=== PATIENT | female | born 1955 | race Caucasian/White ===

== ENCOUNTER 2016-06-15 08:41 | Outpatient (CLI) | payer BC | END 2016-06-15 08:42 | disposition home or self-care (01) | DX: I10 Essential (primary) hypertension (principal); E05.90 Thyrotoxicosis, unspecified without thyrotoxic crisis or storm ==

== ENCOUNTER 2016-07-02 21:01 | Emergency (ER) | payer BC ==
[2016-07-02 21:09] VITALS: BP 149/92
--- NOTE | 2016-07-02 21:42 | ED Physician Documentation ---
PD HPI ABD PAIN - Stated complaint Stated Complaint: LOW ABD PAIN - Chief complaint Chief Complaint: Abd Pain - History obtained from History obtained from: Patient - History of Present Illness Timing - onset: How many hours ago (1) Timing - duration: Hours (1) Timing - details: Abrupt onset, Waxing and waning Pain level now: 6 Quality: Other (burning) Location: Suprapubic Radiation: Other (no radiation) Worsened by: Other (no exacerbating factors (does not seem to be worse with urination)) Similar symptoms before: Diagnosis (similar to previous UTI) Review of Systems Constitutional: denies: Fever, Chills, Sweats GI: reports: Abdominal Pain (suprapubic). 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 : None HEENT: None Psych: Anxiety Musculoskeletal: Other Derm: None - Past Surgical History Past Surgical History: Yes General: Cholecystectomy Ortho: Other /SUPERVISOR ORCHARD: section, Hysterectomy HEENT: Tonsil/Adenoidectomy Derm: Other - Present Medications Home Medications: Ambulatory Orders Medication Instructions Recorded Confirmed Estradiol 0.25 mg PO DAILY 09/16/13 07/02/16 Omeprazole [PriLOSEC] 40 mg PO BID 09/16/13 07/02/16 Venlafaxine ER [Effexor ER] 75 mg PO DAILY 12/21/13 07/02/16 Epinephrine [Epipen 2-Trevor] 0.3 mg IJ ONCE PRN #1 unit 07/31/15 07/02/16 Zolpidem [Ambien] 10 mg PO HS 07/31/15 07/02/16 LORazepam [Ativan] 0.5 mg PO Q6H PRN 07/02/16 07/02/16 Nitrofurantoin [Macrobid] 100 mg PO BID #9 capsule 07/02/16 Phenazopyridine HCl [Pyridium] 200 mg PO TID 3 Days 07/02/16 - Allergies Allergies/Adverse Reactions: Allergies Allergy/AdvReac Type Severity Reaction Status Date / Time codeine Allergy Hives Verified 07/31/15 19:54 Sulfa (Sulfonamide Allergy Hives Verified 07/31/15 19:54 Antibiotics) venom-honey bee Allergy Hives Verified 07/31/15 19:54 [bee venom (honey bee)] - Social History Does the pt smoke?: No Smoking Status: Never smoker Does the pt drink ETOH?: No Does the pt have substance abuse?: No - Immunizations Immunizations are current?: Yes - POLST Patient has POLST: No PD ED PE NORMAL - Vitals Vital signs reviewed: Yes - General General: Alert and oriented X 3, No acute distress, Well developed/nourished - Abdomen Abdomen: Soft, Non tender, Non distended - Derm Derm: Normal color, Warm and dry Results - Vitals Vitals: Vital Signs - 24 hr 07/02/16 07/02/16 21:07 22:32 Temperature 36.8 C Heart Rate 70 68 Respiratory 18 18 Rate Blood Pressure 149/92 H O2 Saturation 98 98 Oxygen O2 Source Room air - Labs Labs: Laboratory Tests 07/02/16 21:25 Urine Color YELLOW Urine Clarity CLEAR Urine pH 8.0 H Ur Specific [place] 1.010 Urine Protein NEGATIVE Urine Glucose (UA) NEGATIVE Urine Ketones NEGATIVE Urine Occult Blood LARGE H Urine Nitrite NEGATIVE Urine Bilirubin NEGATIVE Urine Urobilinogen 0.2 (NORMAL) Ur Leukocyte Esterase LARGE H Urine RBC 6-10 H Urine WBC 6-10 H Ur Squamous Epith Cells FEW Squamous Urine Bacteria Rare Ur Microscopic Review INDICATED Urine Culture Comments INDICATED PD MEDICAL DECISION MAKING - ED course Complexity details: reviewed results, considered differential, d/w patient Departure - Departure Disposition: 01 Home, Self Care Clinical Impression: Urinary tract infectious disease Condition: Good Instructions: ED UTI Cystitis Female Follow-Up: Brett Gaston DO [Primary Care Provider] - (3-5 days if symptoms do not resolve) Prescriptions: Nitrofurantoin [Macrobid] 100 mg PO BID #9 capsule Phenazopyridine HCl [Pyridium] 200 mg PO TID 3 Days Discharge Date/Time: 07/02/16 22:34
[2016-07-02 21:54] LABS: BILIRUBIN,URINE NEGATIVE (NEGATIVE)
[2016-07-02 21:55] LABS: UA w/ MICROSCOPIC CHARGE YES
[2016-07-02 22:03] LABS: UR CULTURE IF IND INDICATED
[2016-07-02] MEDS ORDERED: NITROFURANTOIN MACRO 100 MG CAPSULE PO STA (22:25)
[2016-07-02] MEDS ORDERED: PHENAZOPYRIDINE 100 MG TABLET PO STA (22:25)
[2016-07-02] MEDS ORDERED: PHENAZOPYRIDINE 100 MG TABLET PO ONE (22:28)
[2016-07-02] MEDS ORDERED: NITROFURANTOIN MACRO 100 MG CAPSULE PO ONE (22:28)
== END 2016-07-02 22:34 | disposition home or self-care (01) ==
LOC: ED 21:01
DX: N39.0 Urinary tract infection, site not specified (principal); I10 Essential (primary) hypertension; K21.9 Gastro-esophageal reflux disease without esophagitis
CPT/HCPCS: 81001; 87077; 87086; 87181; 99283; A9270; 81003

== ENCOUNTER 2016-07-24 08:19 | Outpatient (CLI) | payer BC ==
--- NOTE | 2016-07-24 14:19 | DEXA Report ---
DEXA SCAN: 07/24/2016 CLINICAL INDICATION: Postmenopausal. TECHNIQUE: Dual energy x-ray absorptiometry (DXA) was performed on a [employer] system. Regions measured are the AP spine, femoral neck, and, if needed, forearm. COMPARISON: None. In accordance with the International Society for Clinical Densitometry (ISCD) guidelines, data from previous exams may be reanalyzed using current recommendations and techniques. This is done to allow a more accurate basis for comparison with the current study. FINDINGS: The data for the lumbar spine is as follows: REGION BMD (g/cm/cm) T-SCORE Z-SCORE L1 0.910 -1.8 -0.4 L2 0.980 -1.8 -0.4 L3 0.970 -1.9 -0.5 L4 0.859 -2.8 -1.4 TOTAL 0.926 -2.1 -0.7 NOTE: All evaluable vertebrae are used for classification. The data for the hip is as follows: REGION BMD (g/cm/cm) T-SCORE Z-SCORE Neck 0.846 -1.4 0.0 TOTAL 0.906 -0.8 0.3 NOTE: The femoral neck or total proximal femur, whichever is lowest, is used for classification. IMPRESSION: THE WHO CLASSIFICATION BASED ON THE INTERNATIONAL REFERENCE STANDARD IS OSTEOPENIA. THE FRACTURE RISK IS INCREASED. RECOMMENDATION: Patients with diagnosis of osteoporosis or osteopenia should have regular bone mineral density assessment. For those eligible for Medicare, routine testing is allowed once every 2 years. Testing frequency can be increased for patients who have rapidly progressing disease or for those who are receiving medical therapy to restore bone mass. COMMENT: World Health Organization (WHO) definitions for osteoporosis and osteopenia: NORMAL BMD: T-score at -1.0 or higher, fracture risk is low. OSTEOPENIA BMD: T-score between -1.0 and -2.5, fracture risk is increased. OSTEOPOROSIS BMD: T-score at -2.5 or lower, fracture risk high. National Osteoporosis Foundation recommends: 1. Obtain adequate dietary calcium (at least 1200 mg per day) and vitamin D (400 -800 international units per day). 2. Participate, as appropriate, in regular weightbearing and muscle- strengthening exercise. 3. Avoid tobacco use and reduce alcohol and caffeine intake. 4. For more detailed information see the website at www.NOF.org. MTDD
== END 2016-07-24 08:20 | disposition home or self-care (01) ==
LOC: DI 08:19
PROVIDERS: ATTEND Family Medicine
DX: M85.89 Other specified disorders of bone density and structure, multiple sites (principal)
CPT/HCPCS: 77080

== ENCOUNTER 2016-09-21 16:45 | Outpatient (CLI) | payer BC ==
--- NOTE | 2016-09-22 12:30 | XRAY Report ---
THREE-VIEW LEFT FOOT: 09/21/2016 CLINICAL HISTORY: Increasing pain. FINDINGS: There is joint space narrowing, metatarsus adductus and hallux valgus deformity in the set ting of bunion formation. The osseous structures are otherwise unremarkable. There is no acute fracture, focus of destruction, or malalignment. Bony mineralization is grossly unremarkable. IMPRESSION: 1. MODERATE BUNION FORMATION/DEGENERATIVE CHANGES. 2. NO ACUTE PROCESS. JOB #: [id number] EXT JOB #:[id number]
== END 2016-09-21 16:46 | disposition home or self-care (01) ==
LOC: DI 16:45
PROVIDERS: ATTEND Podiatrist
DX: M19.072 Primary osteoarthritis, left ankle and foot (principal); M21.612 Bunion of left foot

== ENCOUNTER 2016-10-01 17:00 | Outpatient (CLI) | payer BC | END 2016-10-01 17:01 | disposition home or self-care (01) | LOC: LAB.R 17:00 | PROVIDERS: ATTEND Physician Assistant Medical | DX: R30.0 Dysuria (principal) | CPT/HCPCS: 87086 ==

== ENCOUNTER 2016-10-20 10:57 | Outpatient (CLI) | payer BC ==
[2016-10-20 11:34] LABS: BILIRUBIN,URINE NEGATIVE (NEGATIVE); PH,URINE 6.5 PH (5.0-7.5)
[2016-10-20 12:03] LABS: WBC,URINE 0-3 /HPF (0-5)
== END 2016-10-20 10:58 | disposition home or self-care (01) ==
LOC: LAB 10:57
PROVIDERS: ATTEND Family Medicine
DX: R31.9 Hematuria, unspecified (principal)
CPT/HCPCS: 81001

== ENCOUNTER 2016-10-22 09:46 | Outpatient (CLI) | payer BC ==
--- NOTE | 2016-10-23 13:55 | Mammography Report ---
DIGITAL SCREENING MAMMOGRAM: 10/22/2016 CLINICAL INDICATION: A 61-year-old for screening. COMPARISON: 08/2015, 07/2014, 01/2010, 11/2008 TECHNIQUE: Routine CC and MLO projections were obtained of the breasts. FINDINGS: The breasts demonstrate heterogeneously dense fibroglandular parenchyma bilaterally. Coar se and punctate, typically benign calcifications are present. No suspicious masses, clustered microc alcifications, or regions of architectural distortion are identified. IMPRESSION: BENIGN FINDINGS. RECOMMENDATION: Routine annual screening unless otherwise clinically indicated. BIRADS CATEGORY 2 - BENIGN FINDINGS. STANDARD QUALIFYING STATEMENTS 1. This examination was reviewed with the aid of Computer-Aided Detection (CAD). 2. A negative or benign imaging report should not delay biopsy if clinically suspicious findings are present. Consider surgical consultation if warranted. More than 5% of cancers are not identified by i maging. 3. Dense breasts may obscure an underlying neoplasm. JOB #: [id number] EXT JOB #:[id number]
== END 2016-10-22 09:47 | disposition home or self-care (01) ==
LOC: DI.N 09:46
PROVIDERS: ATTEND Family Medicine
DX: Z12.31 Encounter for screening mammogram for malignant neoplasm of breast (principal)
CPT/HCPCS: 77067

== ENCOUNTER 2016-10-26 15:17 | Outpatient (CLI) | payer BC ==
[2016-10-26 19:32] LABS: BASOPHILS % (AUTO) 0.4 %; EOSINOPHILS % (AUTO) 0.3 %; HCT - HEMATOCRIT 39.1 % (37.0-47.0); HGB - HEMOGLOBIN 13.3 g/dL (12.0-16.0); LYMPHOCYTES # (AUTO) 1.6 10^3/uL (1.5-3.5); LYMPHOCYTES % (AUTO) 18.6 %; MEAN CORPUSCULAR HEMOGLOBIN 32.2 pg (27.0-31.0); MEAN CORPUSCULAR HGB CONC 33.9 g/dL (32.0-36.0); MEAN CORPUSCULAR VOLUME 95.1 fL (81.0-99.0); MEAN PLATELET VOLUME 8.8 fL (7.9-10.8); MONOCYTES # (AUTO) 0.5 10^3/uL (0.0-1.0); MONOCYTES % (AUTO) 5.8 %; NEUTROPHILS # (AUTO) 6.4 10^3/uL (1.5-6.6); NEUTROPHILS % (AUTO) 74.9 %; NUCLEATED RED BLOOD CELLS AUTO 0.1 /100WBC; RED BLOOD COUNT 4.11 10^6/uL (4.20-5.40); UNCORRECTED WHITE BLOOD COUNT 8.5 x10^3/uL; WHITE BLOOD COUNT 8.5 x10^3/uL (4.8-10.8)
[2016-10-26 20:01] LABS: ALBUMIN/GLOBULIN RATIO 1.8 (1.0-2.2); AMYLASE 41 U/L (28-100); BUN - BLOOD UREA NITROGEN 12 mg/dL (6-20); CALCIUM 9.7 mg/dL (8.5-10.3); CARBON DIOXIDE - CO2 28 mmol/L (21-32); CHLORIDE 99 mmol/L (101-111); CREATININE 0.6 mg/dL (0.4-1.0); GFR - MDRD 101 (>89); GLUCOSE 82 mg/dL (70-100); LIPASE 15 U/L (22-51); SODIUM 135 mmol/L (135-145); TOTAL PROTEIN 7.2 g/dL (6.7-8.2)
== END 2016-10-26 15:18 | disposition home or self-care (01) ==
LOC: LAB.WCP 15:17
PROVIDERS: ATTEND Family Medicine
DX: K86.1 Other chronic pancreatitis (principal)
CPT/HCPCS: 36415; 80053; 82150; 83690; 85025; 86140

== ENCOUNTER 2016-11-03 08:52 | Outpatient (CLI) | payer BC ==
[2016-11-03] MEDS ORDERED: IOPAMIDOL-300 100 ML VIAL ONE (09:07)
[2016-11-03] MEDS ORDERED: IOPAMIDOL-300 100 ML VIAL IVP ONE (09:48)
--- NOTE | 2016-11-03 12:07 | CT Report ---
CT IVP: 11/03/2016 CLINICAL INDICATION: Hematuria. TECHNIQUE: Axial CT images of the abdomen and pelvis were obtained prior to and following 100 mL of Isovue-300 intravenously, using split-bolus technique. No previous CT is available for comparison. FINDINGS: Limited evaluation of the lung bases demonstrates atelectasis. ABDOMEN: On the unenhanced images, there is no evidence of nephrolithiasis or hydronephrosis. The k idneys demonstrate symmetric uptake and excretion of contrast. A cortical cyst is seen arising from the lower pole of the left kidney. The right kidney is unremarkable. No solid renal lesion or colle cting system lesion is identified. The patient is status post cholecystectomy. The liver, spleen, p ancreas, and adrenal glands appear unremarkable. No bowel dilatation, free gas, or free fluid is pre sent. No abdominal adenopathy is seen. PELVIS: The distal ureters and urinary bladder appear unremarkable. No pelvic adenopathy or free fl uid is present. Osseous structures demonstrate degenerative changes. IMPRESSION: NO EVIDENT ETIOLOGY FOR PATIENT'S HEMATURIA. In accordance with CT protocol optimization, one or more of the following dose reduction techniques w ere utilized for this exam: automated exposure control, adjustment of mA and/or KV based on patient size, or use of iterative reconstructive technique. JOB #: [id number] EXT JOB #:[id number]
== END 2016-11-03 08:53 | disposition home or self-care (01) ==
LOC: DI 08:52
PROVIDERS: ATTEND Family Medicine
DX: R31.9 Hematuria, unspecified (principal)
CPT/HCPCS: 74178; Q9967

== ENCOUNTER 2016-12-17 09:10 | Emergency (ER) | payer BC ==
[2016-12-17 09:46] LABS: BASOPHILS % (AUTO) 0.8 %; EOSINOPHILS # (AUTO) 0.2 10^3/uL (0.0-0.7); HCT - HEMATOCRIT 37.9 % (37.0-47.0); HGB - HEMOGLOBIN 12.9 g/dL (12.0-16.0); LYMPHOCYTES % (AUTO) 35.7 %; MEAN CORPUSCULAR HEMOGLOBIN 31.6 pg (27.0-31.0); MEAN CORPUSCULAR VOLUME 92.9 fL (81.0-99.0); MEAN PLATELET VOLUME 7.8 fL (7.9-10.8); MONOCYTES # (AUTO) 0.5 10^3/uL (0.0-1.0); MONOCYTES % (AUTO) 9.3 %; NEUTROPHILS # (AUTO) 2.8 10^3/uL (1.5-6.6); NEUTROPHILS % (AUTO) 50.2 %; RED BLOOD COUNT 4.08 10^6/uL (4.20-5.40); RED CELL DISTRIBUTION WIDTH 12.5 % (12.0-15.0); UNCORRECTED WHITE BLOOD COUNT 5.5 x10^3/uL; WHITE BLOOD COUNT 5.5 x10^3/uL (4.8-10.8)
[2016-12-17 09:57] LABS: ALBUMIN/GLOBULIN RATIO 1.7 (1.0-2.2); BILIRUBIN,TOTAL 0.6 mg/dL (0.2-1.0); CALCIUM 9.3 mg/dL (8.5-10.3); CREATININE 0.7 mg/dL (0.4-1.0); POTASSIUM 3.5 mmol/L (3.5-5.0)
[2016-12-17 10:01] LABS: BILIRUBIN,URINE NEGATIVE (NEGATIVE); PH,URINE 6.5 PH (5.0-7.5)
[2016-12-17 10:06] LABS: UA CHARGE (STRIP ONLY) YES; UR CULTURE IF IND NOT INDICATED
[2016-12-17] MEDS ORDERED: HYDROmorphone 0.5 MG/0.5 ML SYRINGE IVP STA ×2 (10:28→11:26)
[2016-12-17] MEDS ORDERED: SODIUM CHLORIDE 0.9% 1,000 ML IV ONE (10:28)
[2016-12-17] MEDS ORDERED: ONDANSETRON 4 MG/2 ML VIAL IVP STA (10:28)
[2016-12-17] MEDS ORDERED: HYDROmorphone 1 MG/ML SYRINGE ONE ×2 (10:37→11:41)
[2016-12-17] MEDS ORDERED: ONDANSETRON 4 MG/2 ML VIAL ONE (10:37)
[2016-12-17] MEDS ORDERED: HYDROmorphone 1 MG/ML SYRINGE IVP STA (11:39)
--- NOTE | 2016-12-17 13:14 | ED Physician Documentation ---
PD HPI ABD PAIN - Stated complaint Stated Complaint: NAUSEA/SHAKY/WEAK - Chief complaint Chief Complaint: Abd Pain - History obtained from History obtained from: Patient - History of Present Illness Timing - duration: Days (4) Timing - details: Still present Quality: Pain Location: Other (upper abdomen.) Radiation: Upper back Worsened by: Eating Associated symptoms: Nausea. No: Fever, Vomiting, Chest pain Similar symptoms before: Diagnosis (history of chronic pancreatitis.) - Treatment prior to arrival Treatment prior to arrival: Last took an oxycodone tablet at 3:30 AM, 7 hours prior to arrival. - Additional information Additional information: The patient is a 61-year-old female who presents with epigastric abdominal pain , radiating to her back. It first started 4 days ago, and has been worse over the past 2 days, after eating cornbread with butter. She reports associated nausea, but denies vomiting. She denies fever, cough, chest pain, shortness of breath, or dysuria. She reports a history of similar symptoms in the past due to chronic pancreatitis. She is status post pancreatic stent placement in November, one month ago. This is her third flareup of similar pain since placement of the stent. Further surgical history is significant for cholecystectomy and hysterectomy. Review of Systems Constitutional: denies: Fever Ears: denies: Tinnitus/ringing Nose: denies: Congestion Throat: denies: Sore throat Cardiac: denies: Chest pain / pressure Respiratory: denies: Dyspnea, Cough GI: reports: Abdominal Pain, Nausea. denies: Vomiting, Diarrhea : denies: Dysuria Skin: denies: Rash Musculoskeletal: reports: Back pain. 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 - Present Medications Home Medications: Ambulatory Orders Medication Instructions Recorded Confirmed Estradiol 0.25 mg PO DAILY 09/16/13 12/17/16 Omeprazole [PriLOSEC] 40 mg PO BID 09/16/13 12/17/16 Venlafaxine ER [Effexor ER] 75 mg PO DAILY 12/21/13 12/17/16 Epinephrine [Epipen 2-Trevor] 0.3 mg IJ ONCE PRN #1 unit 07/31/15 12/17/16 Zolpidem [Ambien] 10 mg PO HS 07/31/15 12/17/16 LORazepam [Ativan] 0.5 mg PO Q6H PRN 07/02/16 12/17/16 Progesterone,Micronized 100 mg PO DAILY 12/17/16 12/17/16 [Progesterone] oxyCODONE/ACET 5/325 [Percocet 5 1 - 2 tab PO Q4-6H PRN #20 tablet 12/17/16 mg/325 mg] oxyCODONE/ACET 5/325 [Percocet 5 1 tab PO PRN 12/17/16 mg/325 mg] - Allergies Allergies/Adverse Reactions: Allergies Allergy/AdvReac Type Severity Reaction Status Date / Time codeine Allergy Hives Verified 07/31/15 19:54 Sulfa (Sulfonamide Allergy Hives Verified 07/31/15 19:54 Antibiotics) venom-honey bee Allergy Hives Verified 07/31/15 19:54 [bee venom (honey bee)] - Social History Does the pt smoke?: No Smoking Status: Never smoker Does the pt drink ETOH?: No Does the pt have substance abuse?: No - Immunizations Immunizations are current?: Yes - POLST Patient has POLST: No PD ED PE NORMAL - Vitals Vital signs reviewed: Yes (hypertensive) - General General: Alert and oriented X 3, Well developed/nourished - HEENT HEENT: Atraumatic, EOMI, Moist mucous membranes - Neck Neck: No adenopathy, No JVD - Cardiac Cardiac: RRR, No murmur - Respiratory Respiratory: No respiratory distress, Clear bilaterally - Abdomen Abdomen: Normal bowel sounds, Soft, No organomegaly, Other (Tenderness to palpation across the upper abdomen, without rebound or guarding.) - Back Back: No CVA TTP - Derm Derm: No rash - Extremities Extremities: No edema, No calf tenderness / cord - Neuro Neuro: Alert and oriented X 3, No motor deficit, Normal speech Results - Vitals Vitals: Oxygen O2 Source Room air - EKG (time done) 10:25 [place]: LAD - Labs Labs: Laboratory Tests 12/17/16 12/17/16 12/17/16 09:40 09:40 09:45 WBC 5.5 RBC 4.08 L Hgb 12.9 Hct 37.9 MCV 92.9 MCH 31.6 H MCHC 34.0 RDW 12.5 Plt Count 205 MPV 7.8 L Neut # 2.8 Lymph # 2.0 [place] # 0.5 Eos # 0.2 Baso # 0.0 Absolute Nucleated RBC 0.00 Nucleated RBC % 0.0 Sodium 137 Potassium 3.5 Chloride 100 L Carbon Dioxide 28 Anion Gap 9.0 BUN 7 Creatinine 0.7 Estimated GFR (MDRD) 85 L Glucose 95 Calcium 9.3 Total Bilirubin 0.6 AST 18 ALT 16 Alkaline Phosphatase 78 Total Protein 7.0 Albumin 4.4 Globulin 2.6 Albumin/Globulin Ratio 1.7 Lipase 22 Urine Color YELLOW Urine Clarity CLEAR Urine pH 6.5 Ur Specific [place] <=1.005 Urine Protein NEGATIVE Urine Glucose (UA) NEGATIVE Urine Ketones NEGATIVE Urine Occult Blood NEGATIVE Urine Nitrite NEGATIVE Urine Bilirubin NEGATIVE Urine Urobilinogen 0.2 (NORMAL) Ur Leukocyte Esterase NEGATIVE Ur Microscopic Review NOT INDICATED Urine Culture Comments NOT INDICATED PD MEDICAL DECISION MAKING - ED course Complexity details: reviewed old records, reviewed results, re-evaluated patient , considered differential, d/w patient, d/w family ED course: The patient's presentation is most consistent with acute exacerbation of pancreatitis. Her clinical presentation does not suggest cholangitis, bowel obstruction, or pyelonephritis. CBC, chemistry panel, and urinalysis are all normal, including normal lipase of 22. Treatment in the emergency department included administration of normal saline 1 L IV, ondansetron 4 mg IV, and hydromorphone 1 mg IV 2. The patient's symptoms markedly improved with the above treatment, and she subsequently demonstrated ability to drink fluids without recurrent nausea. She is being discharged with prescription for Percocet, 20 tablets. I discussed with her and her the results of her workup, symptomatic treatment and outpatient follow-up, as well as potentially worrisome signs or symptoms that should prompt reevaluation in the emergency department. Departure - Departure Disposition: 01 Home, Self Care Clinical Impression: Abdominal pain Qualifiers: Abdominal location: upper abdomen, unspecified Qualified Code(s): R10.10 - Upper abdominal pain, unspecified Chronic pancreatitis Qualifiers: Pancreatitis type: unspecified pancreatitis type Qualified Code(s): K86.1 - Other chronic pancreatitis High blood pressure Qualifiers: Hypertension type: unspecified Qualified Code(s): I10 - Essential (primary) hypertension Condition: Stable Instructions: Pancreatitis Chronic Dc Follow-Up: Brett Gaston DO [Primary Care Provider] - Prescriptions: oxyCODONE/ACET 5/325 [Percocet 5 mg/325 mg] 1 - 2 tab PO Q4-6H PRN #20 tablet PRN Reason: Pain Comments: Drink plenty of fluids. You can use Percocet as prescribed if needed for pain. He can use previously prescribed ondansetron if needed for nausea. Follow up with your primary physician or with Dr. Joy within 1 week. Call to schedule appointment. Return to the emergency department if you develop increasing abdominal pain, fever, persistent vomiting, or otherwise worsening symptoms. Discharge Date/Time: 12/17/16 13:48
[2016-12-17 13:37] VITALS: BP 169/77
== END 2016-12-17 13:48 | disposition home or self-care (01) ==
LOC: ED 09:10
DX: R10.13 Epigastric pain (principal); K86.1 Other chronic pancreatitis; I10 Essential (primary) hypertension; Z96.89 Presence of other specified functional implants
CPT/HCPCS: 36415; 80053; 81003; 83690; 85025; 96361; 96374; 96375; 96376; 99283; 99284; J1170; 81001; 87086

== ENCOUNTER 2017-03-08 08:57 | Outpatient (CLI) | payer OTHER ==
--- NOTE | 2017-03-08 10:02 | XRAY Report ---
DATE OF SERVICE: 03/08/2017 SUPINE ABDOMEN: 03/08/2017 CLINICAL INDICATION: Pancreatitis. FINDINGS: Supine views of the abdomen demonstrate a normal bowel gas pattern. No small bowel dilatation is present. Surgical clips from previous cholecystectomy are noted in the right upper quadrant. IMPRESSION: NO EVIDENCE OF BOWEL OBSTRUCTION. POSTOPERATIVE CHANGES OF CHOLECYSTECTOMY. TD: 03/08/2017 11:02
== END 2017-03-08 08:58 | disposition home or self-care (01) ==
LOC: DI 08:57
PROVIDERS: ATTEND Internal Medicine Gastroenterology
DX: K85.90 Acute pancreatitis without necrosis or infection, unspecified (principal); Z90.49 Acquired absence of other specified parts of digestive tract
CPT/HCPCS: 74018

== ENCOUNTER 2017-09-02 08:00 | Outpatient (CLI) | payer OTHER | END 2017-09-02 08:01 | disposition home or self-care (01) | LOC: LAB.R 08:00 | PROVIDERS: ATTEND Family Medicine | DX: N39.0 Urinary tract infection, site not specified (principal); Q45.3 Other congenital malformations of pancreas and pancreatic duct | CPT/HCPCS: 87086; 87181 ==

== ENCOUNTER 2017-09-22 08:56 | Outpatient (CLI) | payer OTHER ==
[2017-09-22 12:08] LABS: BASOPHILS % (AUTO) 0.8 %; EOSINOPHILS # (AUTO) 0.1 10^3/uL (0.0-0.7); EOSINOPHILS % (AUTO) 1.5 %; HGB - HEMOGLOBIN 12.2 g/dL (12.0-16.0); LYMPHOCYTES # (AUTO) 1.9 10^3/uL (1.5-3.5); LYMPHOCYTES % (AUTO) 34.7 %; MEAN CORPUSCULAR HEMOGLOBIN 32.4 pg (27.0-31.0); MEAN CORPUSCULAR HGB CONC 34.2 g/dL (32.0-36.0); MEAN CORPUSCULAR VOLUME 94.8 fL (81.0-99.0); MEAN PLATELET VOLUME 9.1 fL (7.9-10.8); MONOCYTES # (AUTO) 0.5 10^3/uL (0.0-1.0); MONOCYTES % (AUTO) 9.9 %; NEUTROPHILS # (AUTO) 2.9 10^3/uL (1.5-6.6); NEUTROPHILS % (AUTO) 53.1 %; PLT - PLATELET COUNT 217 10^3/uL (130-450); RED BLOOD COUNT 3.76 10^6/uL (4.20-5.40); RED CELL DISTRIBUTION WIDTH 13.2 % (12.0-15.0); WHITE BLOOD COUNT 5.5 x10^3/uL (4.8-10.8)
[2017-09-22 12:54] LABS: ALBUMIN 4.3 g/dL (3.2-5.5); ALBUMIN/GLOBULIN RATIO 1.6 (1.0-2.2); ALKALINE PHOSPHATASE 64 IU/L (42-121); ALT ALANINE AMINOTRANSFERASE 19 IU/L (10-60); AST ASPARTATE AMINOTRANSFERASE 18 IU/L (10-42); BILIRUBIN,TOTAL 0.5 mg/dL (0.2-1.0); BUN - BLOOD UREA NITROGEN 16 mg/dL (6-20); CALCIUM 9.1 mg/dL (8.5-10.3); CARBON DIOXIDE - CO2 30 mmol/L (21-32); CHLORIDE 101 mmol/L (101-111); CHOL/HDL RATIO 3.7 (<4.4); CHOLESTEROL 209 mg/dL; CREATININE 0.7 mg/dL (0.4-1.0); GFR - MDRD 85 (>89); GLUCOSE 77 mg/dL (70-100); HDL CHOLESTEROL 56 mg/dL; LDL CHOLESTEROL,CALCULATED 138 mg/dL; LDL/HDL RATIO 2.5 (<4.4); SODIUM 136 mmol/L (135-145); VLDL CHOLESTEROL 15 mg/dL
== END 2017-09-22 08:57 | disposition home or self-care (01) ==
LOC: LAB.WCP 08:56
PROVIDERS: ATTEND Family Medicine
DX: Z00.00 Encounter for general adult medical examination without abnormal findings (principal); E05.90 Thyrotoxicosis, unspecified without thyrotoxic crisis or storm
CPT/HCPCS: 36415; 80053; 80061; 83721; 84443; 85025

== ENCOUNTER 2017-10-08 20:48 | Emergency (ER) | payer OTHER ==
[2017-10-08] MEDS ORDERED: EPINEPHrine 1 MG/ML AMP ONE (21:02)
[2017-10-08] MEDS ORDERED: EPINEPHrine 0.3 MG/0.3 ML SYRINGE IM ONE (21:05)
--- NOTE | 2017-10-08 21:10 | ED Physician Documentation ---
History of Present Illness - Stated complaint Stated Complaint: STUNG BY BEE/POSS ALLERGIC REACTION - Chief complaint Chief Complaint: Resp - History obtained from History obtained from: Patient - History of Present Illness Timing: How many hours ago (1) Pain level now: 2 (chest heaviness) Improved by: nothing Worsened by: inciting event was bee sting, but no exacerbating factors - Additonal information Additional information: arrives via private vehicle, driven to ED by , was stung by a bee approximately 1 hour ago, developed lightheadedness, diaphoresis, dyspnea, chest heaviness, generalized weakness. she was stung anterior neck immediately cranial to the sternal notch. she used an epi-pen and took 40mg prednisone shortly after the sting. she has h/o allergic reaction to bee stings. she was stung approximately 1 week ago on her hand, had localized reaction and was seen in outpatient setting, rx prednisone. those symptoms (hand swelling, erythema) have resolved. 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 : None HEENT: None Psych: Anxiety Musculoskeletal: Other Derm: None - Past Surgical History Past Surgical History: Yes General: Cholecystectomy Ortho: Other /SET UP TECHNICIAN: section, Hysterectomy HEENT: Tonsil/Adenoidectomy Derm: Other - Present Medications Home Medications: Ambulatory Orders Medication Instructions Recorded Confirmed Estradiol 0.25 mg PO DAILY 09/16/13 12/17/16 Omeprazole [PriLOSEC] 40 mg PO BID 09/16/13 12/17/16 Venlafaxine ER [Effexor ER] 75 mg PO DAILY 12/21/13 12/17/16 Epinephrine [Epipen 2-Trevor] 0.3 mg IJ ONCE PRN #1 unit 07/31/15 12/17/16 Zolpidem [Ambien] 10 mg PO HS 07/31/15 12/17/16 LORazepam [Ativan] 0.5 mg PO Q6H PRN 07/02/16 12/17/16 Progesterone,Micronized 100 mg PO DAILY 12/17/16 12/17/16 [Progesterone] oxyCODONE/ACET 5/325 [Percocet 5 1 - 2 tab PO Q4-6H PRN #20 tablet 12/17/16 mg/325 mg] oxyCODONE/ACET 5/325 [Percocet 5 1 tab PO PRN 12/17/16 mg/325 mg] predniSONE [Prednisone] 40 mg PO DAILY #6 tablet 10/09/17 - Allergies Allergies/Adverse Reactions: Allergies Allergy/AdvReac Type Severity Reaction Status Date / Time codeine Allergy Hives Verified 10/08/17 20:59 Sulfa (Sulfonamide Allergy Hives Verified 10/08/17 20:59 Antibiotics) venom-honey bee Allergy Hives Verified 10/08/17 20:59 [bee venom (honey bee)] - Social History Does the pt smoke?: No Smoking Status: Never smoker Does the pt drink ETOH?: No Does the pt have substance abuse?: No - Immunizations Immunizations are current?: Yes - POLST Patient has POLST: No PD ED PE NORMAL - Vitals Vital signs reviewed: Yes - General General: Alert and oriented X 3, Well developed/nourished, Other (pale, diaphoretic, anxious (appropriate for situation)) - HEENT HEENT: Moist mucous membranes - Cardiac Cardiac: RRR, No murmur - Respiratory Respiratory: No respiratory distress, Clear bilaterally - Abdomen Abdomen: Soft, Non tender - Extremities Extremities: No edema - Neuro Neuro: Alert and oriented X 3 PD ED PE EXPANDED - Derm Derm: Pale, Diaphoretic, Urticaria (diffuse) Results - Vitals Vitals: Oxygen O2 Source Room air Oxygen Flow Rate 3 - EKG (time done) No standard instances Rate: Rate (enter#) (81) Rhythm: NSR [place]: Normal Intervals: Normal HI QRS: Normal Ischemia: Normal ST segments - Labs Labs: Laboratory Tests 10/08/17 10/08/17 10/08/17 20:55 20:55 20:55 WBC 8.6 RBC 4.33 Hgb 13.8 Hct 40.2 MCV 92.8 MCH 32.0 H MCHC 34.4 RDW 13.6 Plt Count 292 MPV 7.7 L Neut # (Auto) 4.2 Lymph # (Auto) 3.9 H [place] # (Auto) 0.4 Eos # (Auto) 0.0 Baso # (Auto) 0.0 Absolute Nucleated RBC 0.00 Nucleated RBC % 0.1 Sodium 134 L Potassium 3.3 L Chloride 101 Carbon Dioxide 23 Anion Gap 10.0 BUN 19 Creatinine 0.9 Estimated GFR (MDRD) 63 L Glucose 120 H Calcium 9.0 Troponin I < 0.04 PD MEDICAL DECISION MAKING - ED course Complexity details: reviewed results, re-evaluated patient, considered differential, d/w patient, d/w family ED course: initial blood pressures were 50s-60 SBP and correlated with ill appearance (pale , diaphoretic, anxious). she responded rapidly to IM epinephrine, IV benadryl, IV fluids, and IV solumedrol: vital signs normalized and this correlated with appearance of NAD and patient report of symptom resolution. after three hours of normotensive BP readings, she was discharged. she says she has epi-pens at home. 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 I stressed the severity of the allergic reaction, and recommended that she not partake in beekeeping until and unless instructed otherwise by her physician. I encouraged her to talk to her doctor about referral to an computer equipment installer for consideration of venom immunotherapy. - Sepsis Event Vital Signs: Oxygen O2 Source Room air Oxygen Flow Rate 3 Departure - Departure Disposition: 01 Home, Self Care Clinical Impression: Bee sting allergy Anaphylactic reaction Qualifiers: Encounter type: initial encounter Qualified Code(s): T78.2XXA - Anaphylactic shock, unspecified, initial encounter Condition: Good Instructions: ED Anaphylaxis General Follow-Up: Brett Gaston DO [Primary Care Provider] - Prescriptions: predniSONE [Prednisone] 40 mg PO DAILY #6 tablet Comments: Take the prednisone 40mg once per day as prescribed. I have provided a 3-day course, but I also want you to take the dose you have left over from your doctor 's prescription: this will be a total of four days of prednisone. Discharge Date/Time: 10/09/17 01:05
[2017-10-08] MEDS ORDERED: SODIUM CHLORIDE 0.9% 1,000 ML IV STA (21:14)
[2017-10-08 21:20] LABS: BASOPHILS % (AUTO) 0.1 %; EOSINOPHILS % (AUTO) 0.5 %; HGB - HEMOGLOBIN 13.8 g/dL (12.0-16.0); LYMPHOCYTES # (AUTO) 3.9 10^3/uL (1.5-3.5); MEAN CORPUSCULAR HGB CONC 34.4 g/dL (32.0-36.0); MEAN CORPUSCULAR VOLUME 92.8 fL (81.0-99.0); MEAN PLATELET VOLUME 7.7 fL (7.9-10.8); MONOCYTES # (AUTO) 0.4 10^3/uL (0.0-1.0); MONOCYTES % (AUTO) 4.2 %; NEUTROPHILS # (AUTO) 4.2 10^3/uL (1.5-6.6); NEUTROPHILS % (AUTO) 49.2 %; PLT - PLATELET COUNT 292 10^3/uL (130-450); RED BLOOD COUNT 4.33 10^6/uL (4.20-5.40); RED CELL DISTRIBUTION WIDTH 13.6 % (12.0-15.0); WHITE BLOOD COUNT 8.6 x10^3/uL (4.8-10.8)
[2017-10-08] MEDS ORDERED: diphenhydrAMINE INJ 50 MG/ML VIAL IVP STA (21:21)
[2017-10-08] MEDS ORDERED: methylPREDNISolone SUCCINATE 125 MG/2 ML VIAL IVP STA (21:22)
[2017-10-08 21:26] LABS: CREATININE 0.9 mg/dL (0.4-1.0)
[2017-10-08] MEDS ORDERED: FAMOTIDINE 20 MG/50 ML 50 ML IV STA (21:30)
[2017-10-09 00:15] VITALS: BP 124/82
== END 2017-10-09 01:05 | disposition home or self-care (01) ==
LOC: ED 20:48
DX: T63.441A Toxic effect of venom of bees, accidental (unintentional), initial encounter (principal); I10 Essential (primary) hypertension; R42 Dizziness and giddiness; R06.00 Dyspnea, unspecified; R61 Generalized hyperhidrosis
CPT/HCPCS: 36415; 80048; 84484; 85025; 93005; 96361; 96365; 96372; 96375; 99284; J0171; J1200

== ENCOUNTER 2017-11-26 13:33 | Outpatient (CLI) | payer OTHER | END 2017-11-26 13:34 | disposition home or self-care (01) | LOC: LAB.N 13:33 | PROVIDERS: ATTEND Orthopaedic Surgery | DX: T63.441A Toxic effect of venom of bees, accidental (unintentional), initial encounter (principal); T63.451D Toxic effect of venom of hornets, accidental (unintentional), subsequent encounter | CPT/HCPCS: 36415; 81599; 83520 ==

== ENCOUNTER 2018-08-08 17:41 | Outpatient (CLI) | payer OTHER ==
[2018-08-08 17:54] LABS: BASOPHILS % (AUTO) 0.5 %; EOSINOPHILS # (AUTO) 0.1 10^3/uL (0.0-0.7); EOSINOPHILS % (AUTO) 1.5 %; HGB - HEMOGLOBIN 11.9 g/dL (12.0-16.0); LYMPHOCYTES # (AUTO) 1.7 10^3/uL (1.5-3.5); LYMPHOCYTES % (AUTO) 25.9 %; MEAN CORPUSCULAR HEMOGLOBIN 31.4 pg (27.0-31.0); MEAN CORPUSCULAR HGB CONC 33.5 g/dL (32.0-36.0); MEAN CORPUSCULAR VOLUME 93.7 fL (81.0-99.0); MEAN PLATELET VOLUME 9.5 fL (7.9-10.8); MONOCYTES # (AUTO) 0.5 10^3/uL (0.0-1.0); NEUTROPHILS # (AUTO) 4.2 10^3/uL (1.5-6.6); NEUTROPHILS % (AUTO) 63.6 %; PLT - PLATELET COUNT 225 10^3/uL (130-450); RED BLOOD COUNT 3.79 10^6/uL (4.20-5.40); RED CELL DISTRIBUTION WIDTH 11.9 % (12.0-15.0); WHITE BLOOD COUNT 6.5 x10^3/uL (4.8-10.8)
[2018-08-08] MEDS ORDERED: IOVERSOL 320 50 ML VIAL ONE (17:58)
[2018-08-08] MEDS ORDERED: IOVERSOL 320 100 ML VIAL IVP ONE ×2 (17:58→19:04)
[2018-08-08 18:07] LABS: ALBUMIN 4.2 g/dL (3.2-5.5); ALBUMIN/GLOBULIN RATIO 1.6 (1.0-2.2); BILIRUBIN,TOTAL 0.7 mg/dL (0.2-1.0); CALCIUM 9.2 mg/dL (8.5-10.3); CREATININE 0.6 mg/dL (0.4-1.0); TOTAL PROTEIN 6.9 g/dL (6.7-8.2)
[2018-08-08] MEDS ORDERED: IOVERSOL 320 50 ML VIAL PO ONE (19:04)
--- NOTE | 2018-08-08 19:32 | CT Report ---
Reason: ABDOMINAL PAIN,RIGHT LOWER QUADRANT Procedure Date: 08/08/2018 Accession Number: [id number] / [id number] Procedure: CT - Abdomen/Pelvis W CPT Code: FULL RESULT: EXAM: CT ABDOMEN AND PELVIS EXAM DATE: 08/08/2018 07:02 PM. CLINICAL HISTORY: ABDOMINAL PAIN,RIGHT LOWER QUADRANT. COMPARISONS: IVP 11/03/2016 9:12 AM. TECHNIQUE: Routine helical CT imaging was performed through the abdomen and pelvis. IV contrast: OPTI 320 100ML. Enteric contrast: No. Reconstructions: Coronal and sagittal. In accordance with CT protocol optimization, one or more of the following dose reduction techniques were utilized for this exam: automated exposure control, adjustment of mA and/or KV based on patient size, or use of iterative reconstructive technique. FINDINGS: ABDOMEN: Lung Bases: Incompletely included lower lungs are grossly clear. Heart size is within normal limits. No basilar effusions. Liver: Unremarkable. Spleen: Unremarkable. Pancreas: Unremarkable. Gallbladder/Bile Ducts: Mild biliary ductal dilatation can be seen status post cholecystectomy. Adrenal Glands: Unremarkable. Kidneys: No mass, calculi, or hydronephrosis. 1.7 cm left renal cyst. Peritoneum/Mesentery/Bowel: No free fluid, free air, or collection. No intestinal obstruction or inflammation. The appendix is within normal limits. Lymph nodes: No mesenteric, periportal, or retroperitoneal lymphadenopathy. Vasculature: Abdominal aorta is nonaneurysmal. Portal vein is patent. Hepatic veins are patent. PELVIS: The bladder is unremarkable for the degree of distention. Uterus is absent. No pelvic lymphadenopathy. Bones: No suspicious osseous lesions. IMPRESSION: No acute abnormalities. [facility] The call report notification system was initiated by Dr. Regan Cee at 07:30 PM on 08/08/2018.
== END 2018-08-08 17:42 | disposition home or self-care (01) ==
LOC: DI 17:41
PROVIDERS: ATTEND Physician Assistant Medical
DX: R10.31 Right lower quadrant pain (principal)
CPT/HCPCS: 74177; 80053; 83690; 85025; Q9967

== ENCOUNTER 2018-08-13 14:25 | Emergency (ER) | payer OTHER ==
--- NOTE | 2018-08-13 15:13 | ED Physician Documentation ---
PD HPI NVD - Stated complaint Stated Complaint: VOMITING - Chief complaint Chief Complaint: Abd Pain - History obtained from History obtained from: Patient - History of Present Illness Timing - onset: How many weeks ago (2) Timing - duration: Weeks (2) Timing - details: Still present Associated symptoms: Abdominal pain, Loss of appetite, Weight loss (some in the past 2 weeks), Other (no diarrhea, but has had upper abd pain with vomiting the past 2 weeks. Feeling very weak.). No: Fever, Near syncope / syncope (but feeling very weak with poor fluid intake for 2 weeks.) Contributing factors: No: Sick contact, Bad food Improved by: No: Vomiting Worsened by: Eating Similar symptoms before: Diagnosis (pancreatitis in the past; ulcer pains in the past.) Recently seen: Clinic (5 days ago and given Rx for carafate. Had outpt labs and CT abd which showed normal Lipase and normal appearing CT without pancreatic swelling.) Review of Systems Constitutional: reports: Myalgias, Fatigue. denies: Fever, Chills Nose: denies: Rhinorrhea / runny nose, Congestion Throat: denies: Sore throat Cardiac: denies: Chest pain / pressure Respiratory: denies: Cough GI: reports: Abdominal Pain (upper abd/epigastric area), Nausea, Vomiting. denies: Constipation, Diarrhea, Hematemesis PD PAST MEDICAL HISTORY - Past Medical History Cardiovascular: Hypertension Respiratory: None Endocrine/Autoimmune: None GI: GERD, Pancreatitis CUSTODIAL OFFICER: None : None HEENT: None Psych: Anxiety Musculoskeletal: Other Derm: None - Past Surgical History Past Surgical History: Yes General: Cholecystectomy Ortho: Other /CUSTODIAL OFFICER: section, Hysterectomy HEENT: Tonsil/Adenoidectomy Derm: Other - Present Medications Home Medications: Ambulatory Orders Medication Instructions Recorded Confirmed Estradiol 0.25 mg PO DAILY 09/16/13 12/17/16 Omeprazole [PriLOSEC] 40 mg PO BID 09/16/13 12/17/16 Venlafaxine ER [Effexor ER] 75 mg PO DAILY 12/21/13 12/17/16 EPINEPHrine [Epipen 2-Trevor] 0.3 mg IJ ONCE PRN #1 unit 07/31/15 12/17/16 Zolpidem [Ambien] 10 mg PO HS 07/31/15 12/17/16 LORazepam [Ativan] 0.5 mg PO Q6H PRN 05/25/17 11/09/17 Progesterone,Micronized 100 mg PO DAILY 12/17/16 12/17/16 [Progesterone] oxyCODONE/ACET 5/325 [Percocet 5 1 - 2 tab PO Q4-6H PRN #20 tablet 12/17/16 mg/325 mg] oxyCODONE/ACET 5/325 [Percocet 5 1 tab PO PRN 12/17/16 mg/325 mg] predniSONE [Prednisone] 40 mg PO DAILY #6 tablet 10/09/17 Haloperidol 2 mg PO BID PRN #15 tablet 08/13/18 Lidocaine Viscous 2% [Xylocaine 5 ml PO Q4H PRN #100 ml 08/13/18 Viscous 2%] Ondansetron Odt [Zofran] 4 mg TL Q6H PRN #20 tablet 08/13/18 Oxycodone HCl/Acetaminophen 1 each PO TID PRN #14 tablet 08/13/18 [Percocet 5-325 mg Tablet] Pantoprazole [Protonix] 40 mg PO DAILY #30 tablet 08/13/18 - Allergies Allergies/Adverse Reactions: Allergies Allergy/AdvReac Type Severity Reaction Status Date / Time codeine Allergy Hives Verified 08/13/18 14:41 Sulfa (Sulfonamide Allergy Hives Verified 08/13/18 14:41 Antibiotics) venom-honey bee Allergy Hives Verified 08/13/18 14:41 [bee venom (honey bee)] - Social History Does the pt smoke?: No Smoking Status: Never smoker Does the pt drink ETOH?: No Does the pt have substance abuse?: No - Immunizations Immunizations are current?: Yes - POLST Patient has POLST: No PD ED PE NORMAL - Vitals Vital signs reviewed: Yes - General General: Alert and oriented X 3, Well developed/nourished, Other (appears very uncomfortable and having dry heaving. ) - HEENT HEENT: PERRL (nonicteric), Pharynx benign - Neck Neck: Supple, no meningeal sign, No adenopathy - Cardiac Cardiac: RRR, No murmur - Respiratory Respiratory: Clear bilaterally - Abdomen Abdomen: Normal bowel sounds, Soft, Non distended, No organomegaly, Other (tender epigastric area and RUQ. Some guarding; no percussion tenderness. ) - Female Female : Deferred - Rectal Rectal: Deferred - Back Back: No CVA TTP - Derm Derm: Normal color, Warm and dry - Extremities Extremities: No deformity, No tenderness to palpate - Neuro Neuro: Alert and oriented X 3, No motor deficit, Normal speech Results - Vitals Vitals: Vital Signs - 24 hr 08/13/18 08/13/18 08/13/18 14:37 16:19 19:01 Temperature 35.9 C L Heart Rate 93 81 Respiratory 22 19 Rate Blood Pressure 141/93 H 192/104 H 129/82 H O2 Saturation 100 100 99 Oxygen O2 Source Room air - Labs Labs: Laboratory Tests 08/13/18 08/13/18 08/13/18 16:25 16:25 17:04 WBC 10.0 RBC 3.63 L Hgb 11.3 L Hct 33.3 L MCV 91.7 MCH 31.1 H MCHC 33.9 RDW 11.7 L Plt Count 217 MPV 9.5 Neut # (Auto) 7.1 H Lymph # (Auto) 2.0 [place] # (Auto) 0.9 Eos # (Auto) 0.0 Baso # (Auto) 0.1 Absolute Nucleated RBC 0.00 Nucleated RBC % 0.0 Sodium 132 L Potassium 4.1 Chloride 95 L Carbon Dioxide 22 Anion Gap 15.0 H BUN 10 Creatinine 1.2 H Estimated GFR (MDRD) 45 L Glucose 94 Calcium 9.3 Magnesium 1.8 Total Bilirubin 0.8 AST 19 ALT 16 Alkaline Phosphatase 88 Total Protein 7.1 Albumin 4.5 Globulin 2.6 Albumin/Globulin Ratio 1.7 Lipase 21 L Urine Color YELLOW Urine Clarity CLEAR Urine pH 6.5 Ur Specific [place] 1.010 Urine Protein NEGATIVE Urine Glucose (UA) NEGATIVE Urine Ketones NEGATIVE Urine Occult Blood NEGATIVE Urine Nitrite NEGATIVE Urine Bilirubin NEGATIVE Urine Urobilinogen 0.2 (NORMAL) Ur Leukocyte Esterase NEGATIVE Ur Microscopic Review NOT INDICATED Urine Culture Comments NOT INDICATED Ethyl Alcohol < 5.0 PD MEDICAL DECISION MAKING - ED course Complexity details: reviewed old records (CT report from 5 days ago), re- evaluated patient (improved nausea and pain with some IV meds, but still moderate. Given more pain meds. Feeling somewhat "tense muscles" and still nausea. Gave IV Haldol primarily for antiemetic effect (inapsine not available). This helped her more. She is able to take PO fluids without nausea nor vomiting. Did not want to try foods yet. Does not really meet criteria for "intractable" as she is not vomiting now. No signs of significant other process (not pancreatitis, for example).), considered differential (consider ulcer. Had normal labs and CT earlier this week. Seems more likely gastritis/ulcer. ), d/w patient Departure - Departure Disposition: 01 Home, Self Care Clinical Impression: Dehydration Nausea & vomiting Qualifiers: Vomiting type: unspecified Vomiting Intractability: intractable Qualified Code(s): R11.2 - Nausea with vomiting, unspecified Gastritis Qualifiers: Gastritis type: unspecified gastritis Chronicity: acute Gastritis bleeding: without bleeding Qualified Code(s): K29.00 - Acute gastritis without bleeding Condition: Stable Record reviewed to determine appropriate education?: Yes Instructions: ED PUD Vs Gastritis Follow-Up: Brett Gaston DO [Primary Care Provider] - Prescriptions: Haloperidol 2 mg PO BID PRN #15 tablet PRN Reason: Nausea / Vomiting Lidocaine Viscous 2% [Xylocaine Viscous 2%] 5 ml PO Q4H PRN #100 ml PRN Reason: Pain Ondansetron Odt [Zofran] 4 mg TL Q6H PRN #20 tablet PRN Reason: Nausea / Vomiting Oxycodone HCl/Acetaminophen [Percocet 5-325 mg Tablet] 1 each PO TID PRN #14 tablet PRN Reason: pain Pantoprazole [Protonix] 40 mg PO DAILY #30 tablet Comments: Since you have been on the omeprazole for a while and seems to not be working as well, we can try switching to a different acid reducing medicine. Try pantoprazole daily instead. To that add the sucralfate you have 3 or 4 times a day. For the stomach pain you can use lidocaine orally mixed with some antacid to help with the pain. Add Tylenol or Percocet if needed for pain. For the nausea, he can continue the ondansetron. Alternatively you can use the haloperidol which is good for nausea and can help with relaxing as well at the low dose of it twice daily as needed for nausea. Follow-up with your primary care this coming week. Return as needed. Discharge Date/Time: 08/13/18 19:02
[2018-08-13] MEDS ORDERED: SODIUM CHLORIDE 0.9% 1,000 ML IV ONE ×2 (15:22→15:23)
[2018-08-13] MEDS ORDERED: ONDANSETRON 4 MG/2 ML VIAL IVP STA (15:22)
[2018-08-13] MEDS ORDERED: HYDROmorphone 2 MG/ML VIAL IVP STA (15:23)
[2018-08-13] MEDS ORDERED: FAMOTIDINE 20 MG/2 ML VIAL IVP STA (15:23)
[2018-08-13 16:39] LABS: BASOPHILS # (AUTO) 0.1 10^3/uL (0.0-0.1); BASOPHILS % (AUTO) 0.6 %; EOSINOPHILS % (AUTO) 0.2 %; HGB - HEMOGLOBIN 11.3 g/dL (12.0-16.0); LYMPHOCYTES % (AUTO) 19.7 %; MEAN CORPUSCULAR HEMOGLOBIN 31.1 pg (27.0-31.0); MEAN CORPUSCULAR HGB CONC 33.9 g/dL (32.0-36.0); MEAN CORPUSCULAR VOLUME 91.7 fL (81.0-99.0); MEAN PLATELET VOLUME 9.5 fL (7.9-10.8); MONOCYTES # (AUTO) 0.9 10^3/uL (0.0-1.0); MONOCYTES % (AUTO) 8.6 %; NEUTROPHILS # (AUTO) 7.1 10^3/uL (1.5-6.6); NEUTROPHILS % (AUTO) 70.4 %; PLT - PLATELET COUNT 217 10^3/uL (130-450); RED BLOOD COUNT 3.63 10^6/uL (4.20-5.40); RED CELL DISTRIBUTION WIDTH 11.7 % (12.0-15.0)
[2018-08-13] MEDS ORDERED: KETOROLAC 15 MG/ML VIAL IVP STA (16:47)
[2018-08-13] MEDS ORDERED: HYDROmorphone 1 MG/ML CARPUJECT IVP STA (16:47)
[2018-08-13] MEDS ORDERED: diphenhydrAMINE INJ 50 MG/ML VIAL IVP STA (16:48)
[2018-08-13 16:55] LABS: ALBUMIN 4.5 g/dL (3.2-5.5); ALBUMIN/GLOBULIN RATIO 1.7 (1.0-2.2); ALKALINE PHOSPHATASE 88 IU/L (42-121); ALT ALANINE AMINOTRANSFERASE 16 IU/L (10-60); AST ASPARTATE AMINOTRANSFERASE 19 IU/L (10-42); BILIRUBIN,TOTAL 0.8 mg/dL (0.2-1.0); BUN - BLOOD UREA NITROGEN 10 mg/dL (6-20); CALCIUM 9.3 mg/dL (8.5-10.3); CARBON DIOXIDE - CO2 22 mmol/L (21-32); CHLORIDE 95 mmol/L (101-111); CREATININE 1.2 mg/dL (0.4-1.0); GFR - MDRD 45 (>89); GLUCOSE 94 mg/dL (70-100); LIPASE 21 U/L (22-51); MAGNESIUM 1.8 mg/dL (1.7-2.8); SODIUM 132 mmol/L (135-145); TOTAL PROTEIN 7.1 g/dL (6.7-8.2)
[2018-08-13] MEDS ORDERED: MAG HYDROX/AL HYDROX/SIMETH 30 ML UDC PO STA (17:05)
[2018-08-13] MEDS ORDERED: LIDOCAINE VISCOUS 2% 15 ML UDC MM STA (17:05)
[2018-08-13 17:09] LABS: BILIRUBIN,URINE NEGATIVE (NEGATIVE); GLUCOSE, URINE (UA) NEGATIVE (NEGATIVE); KETONES,URINE (UA) NEGATIVE (NEGATIVE); LEUKOCYTE ESTERASE, URINE NEGATIVE (NEGATIVE); NITRITE,URINE NEGATIVE (NEGATIVE); OCCULT BLOOD,URINE NEGATIVE (NEGATIVE); PH,URINE 6.5 PH (5.0-7.5); PROTEIN,URINE NEGATIVE (NEGATIVE); UROBILINOGEN,URINE 0.2 (NORMAL) E.U./dL (NORMAL)
[2018-08-13 17:10] LABS: CLARITY,URINE CLEAR (CLEAR)
[2018-08-13] MEDS ORDERED: HALOPERIDOL 5 MG/ML VIAL IVP ONE (18:08)
[2018-08-13 19:02] VITALS: BP 129/82
== END 2018-08-13 19:02 | disposition home or self-care (01) ==
LOC: ED 14:25
DX: E86.0 Dehydration (principal); K29.00 Acute gastritis without bleeding; I10 Essential (primary) hypertension
CPT/HCPCS: 36415; 80053; 80320; 81003; 83690; 83735; 85025; 96374; 96375; 96376; 99283; 99284; A9270; J1170; J1200; 81001; 87086

== ENCOUNTER 2018-08-22 08:00 | Outpatient (CLI) | payer OTHER ==
[2018-08-22 11:59] LABS: BASOPHILS # (AUTO) 0.1 10^3/uL (0.0-0.1); BASOPHILS % (AUTO) 0.8 %; EOSINOPHILS # (AUTO) 0.2 10^3/uL (0.0-0.7); EOSINOPHILS % (AUTO) 2.7 %; HGB - HEMOGLOBIN 10.6 g/dL (12.0-16.0); LYMPHOCYTES # (AUTO) 2.1 10^3/uL (1.5-3.5); MEAN CORPUSCULAR HEMOGLOBIN 30.7 pg (27.0-31.0); MEAN CORPUSCULAR HGB CONC 32.3 g/dL (32.0-36.0); MEAN CORPUSCULAR VOLUME 95.1 fL (81.0-99.0); MEAN PLATELET VOLUME 10.3 fL (7.9-10.8); MONOCYTES # (AUTO) 0.7 10^3/uL (0.0-1.0); MONOCYTES % (AUTO) 11.2 %; NEUTROPHILS # (AUTO) 3.3 10^3/uL (1.5-6.6); NEUTROPHILS % (AUTO) 52.1 %; PLT - PLATELET COUNT 247 10^3/uL (130-450); RED BLOOD COUNT 3.45 10^6/uL (4.20-5.40); RED CELL DISTRIBUTION WIDTH 12.5 % (12.0-15.0); WHITE BLOOD COUNT 6.2 x10^3/uL (4.8-10.8)
[2018-08-22 12:21] LABS: CALCIUM 9.4 mg/dL (8.5-10.3); CREATININE 0.7 mg/dL (0.4-1.0)
== END 2018-08-22 23:59 | disposition home or self-care (01) ==
LOC: LAB.WCP 08:00
PROVIDERS: ATTEND Physician Assistant Medical
DX: K21.9 Gastro-esophageal reflux disease without esophagitis (principal)
CPT/HCPCS: 36415; 80048; 85025

== ENCOUNTER 2018-10-04 16:12 | Outpatient (CLI) | payer OTHER ==
[2018-10-04 18:40] LABS: BASOPHILS % (AUTO) 0.5 %; EOSINOPHILS # (AUTO) 0.1 10^3/uL (0.0-0.7); EOSINOPHILS % (AUTO) 1.4 %; HGB - HEMOGLOBIN 10.1 g/dL (12.0-16.0); LYMPHOCYTES # (AUTO) 1.6 10^3/uL (1.5-3.5); LYMPHOCYTES % (AUTO) 24.4 %; MEAN CORPUSCULAR HEMOGLOBIN 30.5 pg (27.0-31.0); MEAN CORPUSCULAR HGB CONC 31.6 g/dL (32.0-36.0); MEAN CORPUSCULAR VOLUME 96.7 fL (81.0-99.0); MEAN PLATELET VOLUME 10.9 fL (7.9-10.8); MONOCYTES # (AUTO) 0.6 10^3/uL (0.0-1.0); MONOCYTES % (AUTO) 9.8 %; NEUTROPHILS # (AUTO) 4.1 10^3/uL (1.5-6.6); NEUTROPHILS % (AUTO) 63.7 %; PLT - PLATELET COUNT 192 10^3/uL (130-450); RED BLOOD COUNT 3.31 10^6/uL (4.20-5.40); RED CELL DISTRIBUTION WIDTH 13.3 % (12.0-15.0); WHITE BLOOD COUNT 6.4 x10^3/uL (4.8-10.8)
[2018-10-04 18:52] LABS: ALBUMIN/GLOBULIN RATIO 1.5 (1.0-2.2); BILIRUBIN,TOTAL 0.5 mg/dL (0.2-1.0); CALCIUM 9.2 mg/dL (8.5-10.3); CREATININE 0.6 mg/dL (0.4-1.0); TOTAL PROTEIN 6.7 g/dL (6.7-8.2)
== END 2018-10-04 23:59 | disposition home or self-care (01) ==
LOC: LAB.R 16:12
PROVIDERS: ATTEND Family Medicine
DX: R10.31 Right lower quadrant pain (principal); F32.9 Major depressive disorder, single episode, unspecified; F41.9 Anxiety disorder, unspecified
CPT/HCPCS: 36415; 80053; 84443; 85025

== ENCOUNTER 2018-11-22 09:44 | Outpatient (CLI) | payer OTHER | END 2018-11-22 23:59 | disposition home or self-care (01) | LOC: LAB.N 09:44 | PROVIDERS: ATTEND Family Medicine | DX: K21.9 Gastro-esophageal reflux disease without esophagitis (principal) | CPT/HCPCS: 36415; 81599; 86003 ==

== ENCOUNTER 2019-12-01 08:00 | Outpatient (CLI) | payer MEDICARE, OTHER ==
[2019-12-01 18:20] LABS: BASOPHILS % (AUTO) 0.8 %; EOSINOPHILS # (AUTO) 0.1 10^3/uL (0.0-0.7); EOSINOPHILS % (AUTO) 1.4 %; HGB - HEMOGLOBIN 11.5 g/dL (12.0-16.0); LYMPHOCYTES # (AUTO) 1.4 10^3/uL (1.5-3.5); LYMPHOCYTES % (AUTO) 28.6 %; MEAN CORPUSCULAR HEMOGLOBIN 31.5 pg (27.0-31.0); MEAN CORPUSCULAR HGB CONC 32.2 g/dL (32.0-36.0); MEAN CORPUSCULAR VOLUME 97.8 fL (81.0-99.0); MEAN PLATELET VOLUME 10.5 fL (7.9-10.8); MONOCYTES # (AUTO) 0.4 10^3/uL (0.0-1.0); MONOCYTES % (AUTO) 8.9 %; NEUTROPHILS # (AUTO) 2.9 10^3/uL (1.5-6.6); NEUTROPHILS % (AUTO) 60.1 %; PLT - PLATELET COUNT 249 10^3/uL (130-450); RED BLOOD COUNT 3.65 10^6/uL (4.20-5.40); RED CELL DISTRIBUTION WIDTH 13.2 % (12.0-15.0); WHITE BLOOD COUNT 4.8 x10^3/uL (4.8-10.8)
[2019-12-01 19:04] LABS: ALBUMIN 4.6 g/dL (3.2-5.5); ALBUMIN/GLOBULIN RATIO 1.7 (1.0-2.2); ALKALINE PHOSPHATASE 81 IU/L (42-121); ALT ALANINE AMINOTRANSFERASE 19 IU/L (10-60); AST ASPARTATE AMINOTRANSFERASE 18 IU/L (10-42); BILIRUBIN,TOTAL 0.8 mg/dL (0.2-1.0); BUN - BLOOD UREA NITROGEN 17 mg/dL (6-20); CALCIUM 9.7 mg/dL (8.5-10.3); CARBON DIOXIDE - CO2 26 mmol/L (21-32); CHLORIDE 97 mmol/L (101-111); CHOL/HDL RATIO 3.7 (<4.4); CHOLESTEROL 209 mg/dL; CREATININE 0.8 mg/dL (0.4-1.0); GLUCOSE 87 mg/dL (70-100); HDL CHOLESTEROL 56 mg/dL; LDL CHOLESTEROL,CALCULATED 139 mg/dL; LDL/HDL RATIO 2.5 (<4.4); SODIUM 132 mmol/L (135-145); TOTAL PROTEIN 7.3 g/dL (6.7-8.2); VLDL CHOLESTEROL 14 mg/dL
== END 2019-12-01 23:59 | disposition home or self-care (01) ==
LOC: LAB.WCP 08:00
PROVIDERS: ATTEND Family Medicine
DX: I10 Essential (primary) hypertension (principal)
CPT/HCPCS: 36415; 80053; 80061; 83721; 85025

== ENCOUNTER 2021-01-22 12:55 | Outpatient (CLI) | payer MEDICARE, OTHER ==
[2021-01-22 17:56] LABS: BASOPHILS % (AUTO) 0.6 %; EOSINOPHILS # (AUTO) 0.1 10^3/uL (0.0-0.7); EOSINOPHILS % (AUTO) 1.2 %; HCT - HEMATOCRIT 35.1 % (37.0-47.0); HGB - HEMOGLOBIN 11.5 g/dL (12.0-16.0); LYMPHOCYTES # (AUTO) 2.4 10^3/uL (1.5-3.5); LYMPHOCYTES % (AUTO) 36.4 %; MEAN CORPUSCULAR HEMOGLOBIN 30.7 pg (27.0-31.0); MEAN CORPUSCULAR HGB CONC 32.8 g/dL (32.0-36.0); MEAN CORPUSCULAR VOLUME 93.6 fL (81.0-99.0); MEAN PLATELET VOLUME 10.8 fL (7.9-10.8); MONOCYTES # (AUTO) 0.5 10^3/uL (0.0-1.0); MONOCYTES % (AUTO) 8.3 %; NEUTROPHILS # (AUTO) 3.4 10^3/uL (1.5-6.6); NEUTROPHILS % (AUTO) 53.2 %; PLT - PLATELET COUNT 231 10^3/uL (130-450); RED BLOOD COUNT 3.75 10^6/uL (4.20-5.40); RED CELL DISTRIBUTION WIDTH 13.3 % (12.0-15.0); WHITE BLOOD COUNT 6.5 x10^3/uL (4.8-10.8)
[2021-01-22 18:16] LABS: ALBUMIN 4.4 g/dL (3.2-5.5); ALBUMIN/GLOBULIN RATIO 1.6 (1.0-2.2); ALKALINE PHOSPHATASE 83 IU/L (42-121); ALT ALANINE AMINOTRANSFERASE 19 IU/L (10-60); AST ASPARTATE AMINOTRANSFERASE 24 IU/L (10-42); BILIRUBIN,TOTAL 0.7 mg/dL (0.2-1.0); BUN - BLOOD UREA NITROGEN 23 mg/dL (6-20); CALCIUM 9.6 mg/dL (8.5-10.3); CARBON DIOXIDE - CO2 29 mmol/L (21-32); CHLORIDE 101 mmol/L (101-111); CHOL/HDL RATIO 5.1 (<4.4); CHOLESTEROL 243 mg/dL; CREATININE 0.9 mg/dL (0.4-1.0); GFR - MDRD 63 (>89); GLUCOSE 79 mg/dL (70-100); HDL CHOLESTEROL 48 mg/dL; LDL CHOLESTEROL,CALCULATED 170 mg/dL; LDL/HDL RATIO 3.5 (<4.4); POTASSIUM 4.2 mmol/L (3.5-5.0); SODIUM 138 mmol/L (135-145); TOTAL PROTEIN 7.1 g/dL (6.7-8.2); TRIGLYCERIDES 124 mg/dL; VLDL CHOLESTEROL 25 mg/dL
== END 2021-01-22 23:59 | disposition home or self-care (01) ==
LOC: LAB.WCP 12:55
PROVIDERS: ATTEND Family Medicine
DX: I10 Essential (primary) hypertension (principal); Z91.018 Allergy to other foods
CPT/HCPCS: 36415; 80053; 80061; 81599; 83721; 85025; 86003

== ENCOUNTER 2021-06-23 12:02 | Outpatient (CLI) | payer MEDICARE, OTHER ==
--- NOTE | 2021-06-23 14:10 | XRAY Report ---
PROCEDURE: Finger(s) RT INDICATIONS: R INDEX FINGER PX TECHNIQUE: AP hand, 2 views of the second finger(s) acquired. COMPARISON: None FINDINGS: Bones: No fractures or dislocations. No suspicious bony lesions. ORIF of the proximal phalanx of t he fifth digit has been performed. Soft tissues: No suspicious soft tissue calcifications. IMPRESSION: 1. Postsurgical sequelae. 2. No acute fracture. No osseous lesion. If symptoms and/or clinical suspicion for pathology continue , further assessment with repeat plain films, or advanced imaging (e.g., CT, MRI, or bone scan) is re commended for further assessment. Reviewed by: Sherin Jimenez MD on 06/23/2021 2:09 PM PDT Approved by: Sherin Jimenez MD on 06/23/2021 2:09 PM PDT Station ID: [id number]
== END 2021-06-23 12:03 | disposition home or self-care (01) ==
LOC: DI.N 12:02
PROVIDERS: ATTEND Family Medicine
DX: M79.644 Pain in right finger(s) (principal)

== ENCOUNTER 2021-10-20 08:00 | Outpatient (CLI) | payer MEDICARE, OTHER | END 2021-10-20 23:59 | disposition home or self-care (01) | LOC: LAB.N 08:00 | PROVIDERS: ATTEND Nurse Practitioner | DX: R30.0 Dysuria (principal) | CPT/HCPCS: 87086 ==

== ENCOUNTER 2022-04-04 22:09 | Emergency (ER) | payer MEDICARE, OTHER ==
[2022-04-04 22:38] LABS: BASOPHILS # (AUTO) 0.1 10^3/uL (0.0-0.1); BASOPHILS % (AUTO) 0.6 %; EOSINOPHILS # (AUTO) 0.1 10^3/uL (0.0-0.7); EOSINOPHILS % (AUTO) 0.6 %; HCT - HEMATOCRIT 36.5 % (37.0-47.0); HGB - HEMOGLOBIN 11.8 g/dL (12.0-16.0); LYMPHOCYTES # (AUTO) 3.1 10^3/uL (1.5-3.5); MEAN CORPUSCULAR HEMOGLOBIN 30.3 pg (27.0-31.0); MEAN CORPUSCULAR HGB CONC 32.3 g/dL (32.0-36.0); MEAN CORPUSCULAR VOLUME 93.6 fL (81.0-99.0); MEAN PLATELET VOLUME 9.8 fL (7.9-10.8); MONOCYTES # (AUTO) 0.9 10^3/uL (0.0-1.0); MONOCYTES % (AUTO) 8.3 %; NEUTROPHILS # (AUTO) 6.5 10^3/uL (1.5-6.6); NEUTROPHILS % (AUTO) 61.2 %; PLT - PLATELET COUNT 262 10^3/uL (130-450); RED CELL DISTRIBUTION WIDTH 12.9 % (12.0-15.0); WHITE BLOOD COUNT 10.6 x10^3/uL (4.8-10.8)
[2022-04-04 22:53] LABS: ALBUMIN 4.9 g/dL (3.2-5.5); ALBUMIN/GLOBULIN RATIO 1.8 (1.0-2.2); BILIRUBIN,TOTAL 0.6 mg/dL (0.2-1.0); CALCIUM 9.4 mg/dL (8.5-10.3); CREATININE 1.2 mg/dL (0.4-1.0); POTASSIUM 4.2 mmol/L (3.5-5.0); TOTAL PROTEIN 7.6 g/dL (6.7-8.2)
[2022-04-04 23:43] LABS: BILIRUBIN,URINE NEGATIVE (NEGATIVE); GLUCOSE, URINE (UA) NEGATIVE (NEGATIVE); KETONES,URINE (UA) NEGATIVE (NEGATIVE); LEUKOCYTE ESTERASE, URINE NEGATIVE (NEGATIVE); NITRITE,URINE NEGATIVE (NEGATIVE); OCCULT BLOOD,URINE NEGATIVE (NEGATIVE); PROTEIN,URINE NEGATIVE (NEGATIVE); UROBILINOGEN,URINE 0.2 (NORMAL) E.U./dL (NORMAL)
[2022-04-04 23:45] LABS: CLARITY,URINE CLEAR (CLEAR)
[2022-04-05] MEDS ORDERED: ONDANSETRON ODT 4 MG TABLET TL STA (00:16)
[2022-04-05] MEDS ORDERED: LORazepam 1 MG TABLET PO STA (00:17)
[2022-04-05] MEDS ORDERED: DICYCLOMINE 10 MG CAPSULE PO STA (00:17)
--- NOTE | 2022-04-05 00:19 | ED Physician Documentation ---
History of Present Illness - Stated complaint Stated Complaint: PRESSURE ABD - Chief complaint Chief Complaint: Abd Pain - History obtained from History obtained from: Patient - Additonal information Additional information: 66-year-old woman presented to the ED with abdominal bloating and pain over the past couple of days.Patient states has history of hiatal hernia surgery in November 2021, stomach fundoplication, pancreatic stents in the past, and IBS. She was bending over quite a bit and very active today and states that she started experiencing some worsening bloating and nausea today. Also has been experiencing intermittent constipation and diarrhea.Denies fever, vomiting. Review of Systems Constitutional: denies: Fever GI: reports: Abdominal Pain, Nausea, Constipation, Diarrhea. denies: Vomiting, Bloody / black stool : denies: Dysuria PD PAST MEDICAL HISTORY - Past Medical History Cardiovascular: Hypertension Respiratory: None Neuro: None Endocrine/Autoimmune: None GI: GERD, Pancreatitis CABLE ENGINEER: None : None HEENT: None Psych: Depression, Anxiety, Panic attacks Musculoskeletal: Other Derm: None - Past Surgical History Past Surgical History: Yes General: Cholecystectomy Ortho: Other /CABLE ENGINEER: section, Hysterectomy HEENT: Tonsil/Adenoidectomy Derm: Other - Present Medications Home Medications: Ambulatory Orders Medication Instructions Recorded Confirmed Estradiol 0.25 mg PO DAILY 09/16/13 12/17/16 Omeprazole [PriLOSEC] 40 mg PO BID 09/16/13 12/17/16 Venlafaxine ER [Effexor ER] 75 mg PO DAILY 12/21/13 12/17/16 EPINEPHrine [Epipen 2-Trevor] 0.3 mg IJ ONCE PRN #1 unit 07/31/15 12/17/16 Zolpidem [Ambien] 10 mg PO HS 07/31/15 12/17/16 LORazepam [Ativan] 0.5 mg PO Q6H PRN 07/02/16 12/17/16 Progesterone, Micronized 100 mg PO DAILY 12/17/16 12/17/16 [Progesterone] oxyCODONE/ACET 5/325 [Percocet 5 1 - 2 tab PO Q4-6H PRN #20 tablet 12/17/16 mg/325 mg] oxyCODONE/ACET 5/325 [Percocet 5 1 tab PO PRN 12/17/16 mg/325 mg] predniSONE [Prednisone] 40 mg PO DAILY #6 tablet 10/09/17 Lidocaine Viscous 2% [Xylocaine 5 ml PO Q4H PRN #100 ml 08/13/18 Viscous 2%] Ondansetron Odt [Zofran] 4 mg TL Q6H PRN #20 tablet 08/13/18 Oxycodone HCl/Acetaminophen 1 each PO TID PRN #14 tablet 08/13/18 [Percocet 5-325 mg Tablet] Pantoprazole [Protonix] 40 mg PO DAILY #30 tablet 08/13/18 haloperidoL [Haloperidol] 2 mg PO BID PRN #15 tablet 08/13/18 EPINEPHrine [Epinephrine] 0.3 mg IJ ONCE PRN #1 auto.injct 09/19/19 Famotidine [Pepcid] 20 mg PO BID #6 tablet 09/19/19 diphenhydrAMINE [Benadryl] 25 mg PO BID #6 capsule 09/19/19 predniSONE [Prednisone] 40 mg PO DAILY #6 tablet 09/19/19 Dicyclomine [Bentyl] 10 mg PO QDAC PRN #15 tab 04/05/22 Ondansetron Odt [Zofran Odt] 4 mg TL Q6H PRN #10 tablet 04/05/22 - Allergies Allergies/Adverse Reactions: Allergies Allergy/AdvReac Type Severity Reaction Status Date / Time codeine Allergy Hives Verified 04/04/22 22:16 Sulfa (Sulfonamide Allergy Hives Verified 04/04/22 22:16 Antibiotics) venom-honey bee Allergy Hives Verified 04/04/22 22:16 [bee venom (honey bee)] bupropion [From Wellbutrin] AdvReac Unknown Verified 04/04/22 22:16 losartan [From Cozaar] AdvReac Headache Verified 04/04/22 22:16 - Social History Does the pt smoke?: No Smoking Status: Former smoker Does the pt drink ETOH?: Yes Does the pt have substance abuse?: No - Immunizations Immunizations are current?: Yes - POLST Patient has POLST: No PD ED PE NORMAL - Vitals Vital signs reviewed: Yes - General General: Alert and oriented X 3, No acute distress, Other (Tearful appearing) - HEENT HEENT: Atraumatic, PERRL, EOMI - Neck Neck: Supple, no meningeal sign - Cardiac Cardiac: RRR - Respiratory Respiratory: No respiratory distress, Clear bilaterally - Abdomen Abdomen: Other (Hyperactive bowel sounds. Diffuse discomfort to palpation.) - Derm Derm: Normal color, Warm and dry - Neuro Neuro: No motor deficit, No sensory deficit - Psych Psych: Other (Depressed mood. Tearful affect.) Results - Vitals Vitals: Vital Signs - 24 hr 04/04/22 04/04/22 22:16 23:50 Temperature 36.5 C 36.8 C Heart Rate 90 87 Respiratory 16 16 Rate Blood Pressure 160/90 H 183/105 H O2 Saturation 99 100 Oxygen O2 Source Room air - Labs Labs: Laboratory Tests 04/04/22 04/04/22 04/04/22 22:28 22:34 22:34 WBC 10.6 RBC 3.90 L Hgb 11.8 L Hct 36.5 L MCV 93.6 MCH 30.3 MCHC 32.3 RDW 12.9 Plt Count 262 MPV 9.8 Neut # (Auto) 6.5 Lymph # (Auto) 3.1 [place] # (Auto) 0.9 Eos # (Auto) 0.1 Baso # (Auto) 0.1 Absolute Nucleated RBC 0.00 Nucleated RBC % 0.0 Sodium 129 L Potassium 4.2 Chloride 93 L Carbon Dioxide 29 Anion Gap 7.0 BUN 36 H Creatinine 1.2 H Estimated GFR (MDRD) 45 L Glucose 107 H Calcium 9.4 Total Bilirubin 0.6 AST 40 ALT 28 Alkaline Phosphatase 85 Total Protein 7.6 Albumin 4.9 Globulin 2.7 Albumin/Globulin Ratio 1.8 Lipase 67 H Urine Color YELLOW Urine Clarity CLEAR Urine pH 7.0 Ur Specific [place] <=1.005 Urine Protein NEGATIVE Urine Glucose (UA) NEGATIVE Urine Ketones NEGATIVE Urine Occult Blood NEGATIVE Urine Nitrite NEGATIVE Urine Bilirubin NEGATIVE Urine Urobilinogen 0.2 (NORMAL) Ur Leukocyte Esterase NEGATIVE Ur Microscopic Review NOT INDICATED Urine Culture Comments NOT INDICATED PD Medical Decision Making - ED course ED course: Social determinant of health last spring. House is undergoing renovations. Patient endorses being under significant amount of stress. 66-year-old woman presents with bloating, constipation, diarrhea, and depressed mood over the past several days. Abdominal exam was benign with CBC and abdominal panel similar to previous with exception of some hyponatremia with sodium of 129 down from 138 on 01/28. Also with creatinine 1.2 today. Stable anemia. Discussed that patient will need to follow-up with her primary care provider as well as her GI at [facility]. Return precautions given. Departure - Departure Disposition: 01 Home, Self Care Clinical Impression: Constipation, Bloating, Depressed mood Condition: Stable Instructions: IBS Follow-Up: CAMILLE SOTO PA-C [Physician No Access] - Prescriptions: Dicyclomine [Bentyl] 10 mg PO QDAC PRN #15 tab PRN Reason: Abdominal Pain Ondansetron Odt [Zofran Odt] 4 mg TL Q6H PRN #10 tablet PRN Reason: Nausea / Vomiting Comments: You were seen in the emergency department for multiple medical symptoms. Your exam uncovered no emergent cause for your symptoms Enter lab work was stable from previous. You do have mild bump in your kidney function testing (creati nine 1.2 today). You should follow-up with your primary care provider regarding this and your other symptoms. Return to the ED for new or worsening symptoms or other concerns. Please consider seeking mental health counseling given the significant changes in your life over the past couple years. In person counseling: [facility] - Rony Solorio LM [address] [place] [address] ~2 mi [place] based telehealth mental health therapy: better help
[2022-04-05] MEDS ORDERED: KETOROLAC 15 MG/ML VIAL IM STA (02:15)
[2022-04-05] MEDS ORDERED: oxyCODONE 5 MG TABLET PO STA (02:16)
[2022-04-05] MEDS ORDERED: HYDROcod/ACETAM 10 MG/325 MG TABLET PO STA (02:42)
[2022-04-05 03:03] VITALS: BP 155/75
== END 2022-04-05 03:42 | disposition home or self-care (01) ==
LOC: ED 22:09
DX: R14.0 Abdominal distension (gaseous) (principal); K59.00 Constipation, unspecified; F32.A Depression, unspecified; Z87.891 Personal history of nicotine dependence; R79.89 Other specified abnormal findings of blood chemistry
CPT/HCPCS: 36415; 80053; 81003; 83690; 85025; 96372; 99283; 99284; A9270; J8499; Q0162; 81001; 87086

== ENCOUNTER 2022-04-20 10:36 | Outpatient (CLI) | payer MEDICARE, OTHER ==
[2022-04-20 12:59] LABS: BASOPHILS # (AUTO) 0.1 10^3/uL (0.0-0.1); BASOPHILS % (AUTO) 0.9 %; EOSINOPHILS # (AUTO) 0.1 10^3/uL (0.0-0.7); EOSINOPHILS % (AUTO) 1.7 %; HCT - HEMATOCRIT 38.2 % (37.0-47.0); HGB - HEMOGLOBIN 12.3 g/dL (12.0-16.0); LYMPHOCYTES # (AUTO) 1.9 10^3/uL (1.5-3.5); LYMPHOCYTES % (AUTO) 32.4 %; MEAN CORPUSCULAR HEMOGLOBIN 30.1 pg (27.0-31.0); MEAN CORPUSCULAR HGB CONC 32.2 g/dL (32.0-36.0); MEAN CORPUSCULAR VOLUME 93.6 fL (81.0-99.0); MEAN PLATELET VOLUME 10.4 fL (7.9-10.8); MONOCYTES # (AUTO) 0.5 10^3/uL (0.0-1.0); NEUTROPHILS # (AUTO) 3.2 10^3/uL (1.5-6.6); NEUTROPHILS % (AUTO) 55.8 %; PLT - PLATELET COUNT 247 10^3/uL (130-450); RED BLOOD COUNT 4.08 10^6/uL (4.20-5.40); RED CELL DISTRIBUTION WIDTH 12.8 % (12.0-15.0); WHITE BLOOD COUNT 5.8 x10^3/uL (4.8-10.8)
[2022-04-20 13:27] LABS: ALBUMIN 4.9 g/dL (3.2-5.5); ALBUMIN/GLOBULIN RATIO 1.8 (1.0-2.2); ALKALINE PHOSPHATASE 81 IU/L (42-121); ALT ALANINE AMINOTRANSFERASE 22 IU/L (10-60); AST ASPARTATE AMINOTRANSFERASE 22 IU/L (10-42); BILIRUBIN,TOTAL 0.6 mg/dL (0.2-1.0); BUN - BLOOD UREA NITROGEN 26 mg/dL (6-20); CALCIUM 10.2 mg/dL (8.5-10.3); CARBON DIOXIDE - CO2 29 mmol/L (21-32); CHLORIDE 100 mmol/L (101-111); CHOL/HDL RATIO 3.4 (<4.4); CHOLESTEROL 227 mg/dL; CREATININE 0.9 mg/dL (0.4-1.0); GFR - MDRD 62 (>89); GLUCOSE 96 mg/dL (70-100); HDL CHOLESTEROL 67 mg/dL; LDL CHOLESTEROL,CALCULATED 149 mg/dL; LDL/HDL RATIO 2.2 (<4.4); LIPASE 27 U/L (22-51); POTASSIUM 4.1 mmol/L (3.5-5.0); SODIUM 137 mmol/L (135-145); TOTAL PROTEIN 7.7 g/dL (6.7-8.2); TRIGLYCERIDES 53 mg/dL; VLDL CHOLESTEROL 11 mg/dL
[2022-04-20 16:17] LABS: THYROID STIMULATING HORMONE 1.34 uIU/mL (0.34-5.60)
== END 2022-04-20 10:37 | disposition home or self-care (01) ==
LOC: LAB.N 10:36
PROVIDERS: ATTEND Physician Assistant
DX: E87.1 Hypo-osmolality and hyponatremia (principal); R94.4 Abnormal results of kidney function studies; E78.5 Hyperlipidemia, unspecified; K86.1 Other chronic pancreatitis; R10.13 Epigastric pain; D64.9 Anemia, unspecified
CPT/HCPCS: 36415; 80053; 80061; 83690; 83721; 84443; 85025

== ENCOUNTER 2022-05-14 11:22 | Emergency (ER) | payer MEDICARE, OTHER ==
[2022-05-14 12:33] LABS: BASOPHILS % (AUTO) 0.5 %; EOSINOPHILS % (AUTO) 0.5 %; HCT - HEMATOCRIT 33.3 % (37.0-47.0); HGB - HEMOGLOBIN 10.8 g/dL (12.0-16.0); LYMPHOCYTES # (AUTO) 1.8 10^3/uL (1.5-3.5); LYMPHOCYTES % (AUTO) 21.6 %; MEAN CORPUSCULAR HEMOGLOBIN 30.6 pg (27.0-31.0); MEAN CORPUSCULAR HGB CONC 32.4 g/dL (32.0-36.0); MEAN CORPUSCULAR VOLUME 94.3 fL (81.0-99.0); MEAN PLATELET VOLUME 9.3 fL (7.9-10.8); MONOCYTES # (AUTO) 0.6 10^3/uL (0.0-1.0); MONOCYTES % (AUTO) 7.7 %; NEUTROPHILS # (AUTO) 5.7 10^3/uL (1.5-6.6); NEUTROPHILS % (AUTO) 69.5 %; PLT - PLATELET COUNT 241 10^3/uL (130-450); RED BLOOD COUNT 3.53 10^6/uL (4.20-5.40); RED CELL DISTRIBUTION WIDTH 13.1 % (12.0-15.0); WHITE BLOOD COUNT 8.2 x10^3/uL (4.8-10.8)
[2022-05-14 12:45] LABS: ALBUMIN 4.3 g/dL (3.2-5.5); ALBUMIN/GLOBULIN RATIO 1.7 (1.0-2.2); BILIRUBIN,TOTAL 0.8 mg/dL (0.2-1.0); CALCIUM 9.3 mg/dL (8.5-10.3); CREATININE 0.8 mg/dL (0.4-1.0); POTASSIUM 4.2 mmol/L (3.5-5.0); TOTAL PROTEIN 6.9 g/dL (6.7-8.2)
[2022-05-14] MEDS ORDERED: SODIUM CHLORIDE 0.9% 1,000 ML IV STA (14:18)
[2022-05-14] MEDS ORDERED: KETOROLAC 30 MG/ML VIAL IVP STA (14:30)
[2022-05-14] MEDS ORDERED: iohexoL-300 100 ML VIAL ONE (14:34)
--- NOTE | 2022-05-14 14:34 | ED Physician Documentation ---
History of Present Illness - Stated complaint Stated Complaint: PX, DEHYDRATION - Chief complaint Chief Complaint: Abd Pain - Additonal information Additional information: 66-year-old female presents to the emergency department for evaluation of 5 days generalized abdominal pain and diarrhea. Reports a history of pancreatitis divisum. Patient states she is scheduled to undergo specialized imaging of this in the upcoming few weeks. About 5 days ago she began having some pain in her belly. She felt like her intestines were bloated and then narrowed. She states she had a really large bowel movement that has been followed by about 3 episodes of diarrhea daily. Had a colonoscopy last about 5 years ago unsure the results. She is followed by a power lineman. She did speak with her primary PA today who advised her to come to the ER for IV fluids and hydration. Patient is requesting nonnarcotic analgesia. Reports an intolerance to oxycodone which caused hives as well as hydrocodone which caused excessive pruritus. Review of Systems Cardiac: reports: Reviewed and negative Respiratory: reports: Reviewed and negative GI: reports: Abdominal Pain, Nausea, Diarrhea. denies: Vomiting, Bloody / black stool : reports: Reviewed and negative Skin: reports: Reviewed and negative Musculoskeletal: reports: Reviewed and negative PD PAST MEDICAL HISTORY - Past Medical History Cardiovascular: Hypertension Respiratory: None Neuro: None Endocrine/Autoimmune: None GI: GERD, Pancreatitis ADOPTION SPECIALIST: None : None HEENT: None Psych: Depression, Anxiety, Panic attacks Musculoskeletal: Other Derm: None - Past Surgical History Past Surgical History: Yes General: Cholecystectomy Ortho: Other /ADOPTION SPECIALIST: section, Hysterectomy HEENT: Tonsil/Adenoidectomy Derm: Other - Present Medications Home Medications: Ambulatory Orders Medication Instructions Recorded Confirmed Estradiol 0.25 mg PO DAILY 09/16/13 12/17/16 Omeprazole [PriLOSEC] 40 mg PO BID 09/16/13 12/17/16 Venlafaxine ER [Effexor ER] 75 mg PO DAILY 12/21/13 12/17/16 EPINEPHrine [Epipen 2-Trevor] 0.3 mg IJ ONCE PRN #1 unit 07/31/15 12/17/16 Zolpidem [Ambien] 10 mg PO HS 07/31/15 12/17/16 LORazepam [Ativan] 0.5 mg PO Q6H PRN 07/02/16 12/17/16 Progesterone, Micronized 100 mg PO DAILY 12/17/16 12/17/16 [Progesterone] oxyCODONE/ACET 5/325 [Percocet 5 1 - 2 tab PO Q4-6H PRN #20 tablet 12/17/16 mg/325 mg] oxyCODONE/ACET 5/325 [Percocet 5 1 tab PO PRN 12/17/16 mg/325 mg] predniSONE [Prednisone] 40 mg PO DAILY #6 tablet 10/09/17 Lidocaine Viscous 2% [Xylocaine 5 ml PO Q4H PRN #100 ml 08/13/18 Viscous 2%] Ondansetron Odt [Zofran] 4 mg TL Q6H PRN #20 tablet 08/13/18 Oxycodone HCl/Acetaminophen 1 each PO TID PRN #14 tablet 08/13/18 [Percocet 5-325 mg Tablet] Pantoprazole [Protonix] 40 mg PO DAILY #30 tablet 08/13/18 haloperidoL [Haloperidol] 2 mg PO BID PRN #15 tablet 08/13/18 EPINEPHrine [Epinephrine] 0.3 mg IJ ONCE PRN #1 auto.injct 09/19/19 Famotidine [Pepcid] 20 mg PO BID #6 tablet 09/19/19 diphenhydrAMINE [Benadryl] 25 mg PO BID #6 capsule 09/19/19 predniSONE [Prednisone] 40 mg PO DAILY #6 tablet 09/19/19 Dicyclomine [Bentyl] 10 mg PO QDAC PRN #15 tab 04/05/22 Ondansetron Odt [Zofran Odt] 4 mg TL Q6H PRN #10 tablet 04/05/22 - Allergies Allergies/Adverse Reactions: Allergies Allergy/AdvReac Type Severity Reaction Status Date / Time codeine Allergy Hives Verified 04/04/22 22:16 oxycodone Allergy Hives Verified 04/05/22 02:33 Sulfa (Sulfonamide Allergy Hives Verified 04/04/22 22:16 Antibiotics) venom-honey bee Allergy Hives Verified 04/04/22 22:16 [bee venom (honey bee)] bupropion [From Wellbutrin] AdvReac Unknown Verified 04/04/22 22:16 - Social History Does the pt smoke?: No Smoking Status: Former smoker Does the pt drink ETOH?: Yes Does the pt have substance abuse?: No - Immunizations Immunizations are current?: Yes - POLST Patient has POLST: No PD ED PE NORMAL - General General: Alert and oriented X 3, No acute distress - HEENT HEENT: Atraumatic, Moist mucous membranes - Neck Neck: Supple, no meningeal sign, No adenopathy - Cardiac Cardiac: RRR, No murmur - Respiratory Respiratory: No respiratory distress, Clear bilaterally - Abdomen Abdomen: Normal bowel sounds, Soft. No: Non tender (Mildly tender abdomen though generalized. Nonfocal. Not peritoneal. No guarding or rebound.) - Back Back: No CVA TTP, No spinal TTP - Derm Derm: Normal color, Warm and dry - Extremities Extremities: No deformity, Normal ROM s pain - Neuro Neuro: Alert and oriented X 3, switchboard operator helper 2-12 intact Eye Opening: Spontaneous Motor: Obeys Commands Verbal: Oriented GCS Score: 15 Results - Vitals Vitals: Vital Signs - 24 hr 05/14/22 05/14/22 05/14/22 12:08 15:32 15:33 Temperature 37 C 35.9 C L Heart Rate 80 74 Respiratory 16 14 Rate Blood Pressure 156/100 H 147/81 H O2 Saturation 100 100 Oxygen O2 Source Room air - Labs Labs: Laboratory Tests 05/14/22 05/14/22 05/14/22 12:29 12:29 15:23 WBC 8.2 RBC 3.53 L Hgb 10.8 L Hct 33.3 L MCV 94.3 MCH 30.6 MCHC 32.4 RDW 13.1 Plt Count 241 MPV 9.3 Neut # (Auto) 5.7 Lymph # (Auto) 1.8 Ramsey # (Auto) 0.6 Eos # (Auto) 0.0 Baso # (Auto) 0.0 Absolute Nucleated RBC 0.00 Nucleated RBC % 0.0 Sodium 139 Potassium 4.2 Chloride 106 Carbon Dioxide 26 Anion Gap 7.0 BUN 21 H Creatinine 0.8 Estimated GFR (MDRD) 72 L Glucose 89 Calcium 9.3 Total Bilirubin 0.8 AST 23 ALT 23 Alkaline Phosphatase 80 Total Protein 6.9 Albumin 4.3 Globulin 2.6 Albumin/Globulin Ratio 1.7 Lipase 28 Urine Color YELLOW Urine Clarity CLEAR Urine pH 7.0 Ur Specific [place] 1.010 Urine Protein NEGATIVE Urine Glucose (UA) NEGATIVE Urine Ketones 15 H Urine Occult Blood NEGATIVE Urine Nitrite NEGATIVE Urine Bilirubin NEGATIVE Urine Urobilinogen 0.2 (NORMAL) Ur Leukocyte Esterase NEGATIVE Ur Microscopic Review NOT INDICATED Urine Culture Comments NOT INDICATED - Rads (name of study) CT abd Relevant Findings:: Final report received (Mild diffuse colonic wall thickening involving the distal sigmoid colon consistent with colitis. Etiologies may be infection or inflammatory bowel disease. Mild hepatic steatosis. Unremarkable pancreas. No pancreatic calcifications) PD Medical Decision Making - ED course Complexity details: reviewed old records, reviewed results, re-evaluated patient, considered differential, d/w patient ED course: 66-year-old female who presents emergency department for evaluation of abdominal pain and diarrhea. Symptoms began about 5 days ago. States that she has pancreatitis Dioval and has a hard time managing some chronic abdominal pain. When her symptoms began she had a very large unexpected bowel movement and has since then had 3-4 watery stools a day. All nonbloody. She does have some opioid intolerance and declined opioids today. She did have some modest relief in her cramping with use of Toradol. We obtained a CBC and electrolytes and per my interpretation no acute worrisome findings. Specifically no leukocytosis electrolyte derangement to suggest severe dehydration, renal dysfunction liver or biliary obstruction. Her lipase is not elevated. On exam there was some mild generalized but nonfocal no guard ing and nonperitoneal abdominal tenderness. We did obtain a CT of the abdomen with contrast and per radiology interpretation we do find some mild distal sigmoid colitis. With this finding I discussed at the bedside with the patient that I had lower suspicion for an infectious colitis given the lack of fevers, leukocytosis or bloody output. Patient reports that for the last 4 to 5 days she has been having a pure liquid diet which I think may be contributing to the cramping. As such she would like to try a brat diet at home hoping that some fiber and bulk in her stool will reduce cramping. Also advised some NSAID medication taken with food. She is also advised she should have a screening colonoscopy upcoming given her age and the findings of colitis. Clinically there are no indication to admit the patient to the hospital. She appears well without tachycardia hypotension or findings of dehydration. She is discharged home in stable condition with usual emergent return precautions Departure - Departure Disposition: 01 Home, Self Care Clinical Impression: Colitis, History of pancreatic disorder Diarrhea Qualifiers: Diarrhea type: unspecified type Qualified Code(s): R19.7 - Diarrhea, unspecified Condition: Stable Record reviewed to determine appropriate education?: Yes Comments: Dania you came to the emergency department today because for the last 4 to 5 days you have been having watery bowel movements, abdominal pain and cramping. You do have a history of pancreatitis Diven. We did obtain a CBC, electrolytes today in the emergency department. They are entirely unremarkable. Your lipase, associated with pancreatic inflammation is not elevated. A CT of your abdomen was completed with contrast. Again there were no findings to suggest pancreatitis or concerns with the pancreas on that imaging today. It does however show some colitis or inflammation of the descending/sigmoid colon. As we discussed at the bedside the 2 causes are typically inflammatory or infectious. However given lack of fevers, bloody output or worrisome lab findings I do not believe that this is infectious. Most diarrhea will begin to resolve between 5 and 7 days. You are doing a good job at staying hydrated and you can continue to take your electrolyte supplements though I would at this point recommend starting a brat diet. Bananas, rice, applesauce, toast. Adding some bulk and fiber to your intestines will help reduce the cramping. If you find that your symptoms or not improving over the next few days, you develop fevers or have any bloody output then please return immediately to the ER for second evaluation
[2022-05-14 15:32] LABS: BILIRUBIN,URINE NEGATIVE (NEGATIVE); GLUCOSE, URINE (UA) NEGATIVE (NEGATIVE); KETONES,URINE (UA) 15 mg/dL (NEGATIVE); LEUKOCYTE ESTERASE, URINE NEGATIVE (NEGATIVE); NITRITE,URINE NEGATIVE (NEGATIVE); OCCULT BLOOD,URINE NEGATIVE (NEGATIVE); PROTEIN,URINE NEGATIVE (NEGATIVE); UROBILINOGEN,URINE 0.2 (NORMAL) E.U./dL (NORMAL)
[2022-05-14 15:33] LABS: CLARITY,URINE CLEAR (CLEAR)
[2022-05-14 16:32] VITALS: BP 143/79
[2022-05-14] MEDS ORDERED: iohexoL-300 100 ML VIAL IVP ONE (16:34)
--- NOTE | 2022-05-15 07:07 | CT Report ---
PROCEDURE: ABDOMEN/PELVIS W INDICATIONS: diarrhea; chronic pancreatitis CONTRAST: 100ml Omnipaque 300 TECHNIQUE: After the administration of IV contrast, 5 mm thick sections acquired from the diaphragms to the symp hysis. 5 mm thick coronal and sagittal reformats were acquired. For radiation dose reduction, the f ollowing was used: automated exposure control, adjustment of mA and/or kV according to patient size. COMPARISON: CT abdomen and pelvis with, 08/08/2018. FINDINGS: Image quality: Excellent. Lung bases and heart: Diaphragmatic hernia in the left posterior hemidiaphragm. Right middle lobe ate lectasis. Heart size is normal. Liver: Normal size. Mild hepatic steatosis. Gallbladder: Surgically absent. Mild intrahepatic biliary dilation is likely secondary to cholecystec rosario. Spleen: Unremarkable. Pancreas: Unremarkable. No pancreatic calcification. Adrenals: Unremarkable. Kidneys and ureters: Normal size and symmetrical enhancement. There is a 2.7 cm simple, exophytic cys t in the lateral aspect of the left kidney. A tiny 0.7 cm cortical nodule in right kidney is also lik ghada a cyst. No stones or hydronephrosis. Bowel and peritoneum: There is mild diffuse colonic wall thickening involving the distal sigmoid colo n consistent with colitis. No bowel distension. No pathologic free fluid. Normal appendix. Lymph nodes: No central or retroperitoneal adenopathy. Vessels: Unremarkable. PELVIS Reproductive organs: Uterus is absent. Ovaries are not well seen. No free fluid in pelvis. Bladder: Unremarkable. Lymph nodes: Unremarkable. Bones: No aggressive osseous abnormality. Other: None. IMPRESSION: 1. Mild diffuse colonic wall thickening involving the distal sigmoid colon, consistent with colitis. Etiologies may be infection or inflammatory bowel disease. Recommend clinical correlation. 2. Mild hepatic steatosis. Reviewed by: Noreen Amado MD on 05/14/2022 3:25 PM PDT Approved by: Noreen Amado MD on 05/14/2022 3:25 PM PDT Station ID: [id number]
== END 2022-05-14 16:31 | disposition home or self-care (01) ==
LOC: ED 11:22
DX: K52.9 Noninfective gastroenteritis and colitis, unspecified (principal); K21.9 Gastro-esophageal reflux disease without esophagitis; Z87.891 Personal history of nicotine dependence; Z79.899 Other long term (current) drug therapy; I10 Essential (primary) hypertension
CPT/HCPCS: 36415; 74177; 80053; 81003; 83690; 85025; 96361; 96374; 99283; 99284; Q9967; 81001; 87086

== ENCOUNTER 2022-05-26 07:01 | Outpatient (CLI) | payer MEDICARE, OTHER ==
--- NOTE | 2022-05-26 10:40 | Ultrasound Report ---
PROCEDURE: Retroperitoneal, ultrasound INDICATIONS: ELEVATED CR, ABD PAIN TECHNIQUE: Real-time scanning was performed of the retroperitoneal organs, with image documentation. COMPARISON: None. FINDINGS: Kidneys: Kidneys are normal in size. Right kidney measures 11.1 cm long; left kidney measures 11.0 cm long. Right renal cortical thickness is 1.3 cm; left renal cortical thickness is 1.6 cm. No bryan d masses, hydronephrosis, or nephrolithiasis. No renal cysts measure up to 3.1 cm on the left. Bladder: Pre-void bladder volume is 55.2 mL. Post-void residual is 26.7 mL. Pre-void images demons trate no intraluminal masses or stones. On pre-void images, bilateral ureteral jets are noted with c olor Doppler interrogation. (Of note, ureteral jets may not be detectable in up to 25% of cases due to insufficient differences in specific gravity between ureteral and bladder urine). Miscellaneous: No free abdominal fluid. IMPRESSION: 1. No renal calculi or hydronephrosis. 2. Bilateral simple renal cysts measure up to 3.1 cm 3. Small postvoid residual 26.7 cc Reviewed by: Javier Sharp MD on 05/26/2022 9:38 AM NESHA Approved by: Javier Sharp MD on 05/26/2022 9:38 AM NESHA Station ID: [id number]
--- NOTE | 2022-05-26 10:44 | Ultrasound Report ---
PROCEDURE: Abdomen Complete INDICATIONS: ELEVATED CR, ABD PAIN TECHNIQUE: Real-time scanning was performed of the abdominal and retroperitoneal organs, with image documentatio n. COMPARISON: None. FINDINGS: Liver: Liver is normal in size and homogeneous in echotexture. Gallbladder: Absent. Biliary ducts: Intrahepatic bile ducts are non-dilated. Extrahepatic bile duct caliber measures 6 m m. Normal is 6-7 mm or less in diameter, or 10 mm or less post-cholecystectomy. Pancreas: Visualized portions of the pancreas are sonographically normal. Spleen: Spleen is normal in size and homogeneous in echotexture. Kidneys: Kidneys are normal in size and echotexture. Right kidney measures 11.1 cm long; left kidne y measures 11.0 cm long. No hydronephrosis or nephrolithiasis. No solid masses. No complex renal cy stic lesions which require follow-up. Aorta: Visualized aorta is normal in caliber at less than 3 cm. Iliacs: Proximal common iliac arteries are normal in caliber at less than 2.5 cm. IVC: Intrahepatic inferior vena cava is patent. Miscellaneous: No free abdominal fluid. IMPRESSION: Unremarkable abdominal ultrasound. Please see dedicated renal ultrasound for further discussion. Reviewed by: Jose Angel Scott on 05/26/2022 10:43 AM PDT Approved by: Jose Angel Scott on 05/26/2022 10:43 AM PDT Station ID: [id number]
== END 2022-05-26 07:02 | disposition home or self-care (01) ==
LOC: DI 07:01
PROVIDERS: ATTEND Physician Assistant
DX: N28.1 Cyst of kidney, acquired (principal); R79.89 Other specified abnormal findings of blood chemistry; R10.13 Epigastric pain; K86.1 Other chronic pancreatitis

== ENCOUNTER 2022-11-23 22:55 | Emergency (ER) | payer MEDICARE, OTHER ==
[2022-11-23 23:14] VITALS: BP 150/80; O2SAT 100
--- NOTE | 2022-11-24 01:30 | ED Physician Documentation ---
History of Present Illness - Stated complaint Stated Complaint: NASAL/SINUS PX/BLURRY VISION - Chief complaint Chief Complaint: Heent - History obtained from History obtained from: Patient - Additonal information Additional information: HPI from patient. Patient c/o 2-3 days of gradual onset but steadily worsening pain, redness, and swelling of ala of right nare of nose. 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 : None HEENT: None Psych: Depression, Anxiety, Panic attacks Musculoskeletal: Other Derm: None - Past Surgical History Past Surgical History: Yes General: Cholecystectomy Ortho: Other /HEAVY EQUIPMENT SALES MANAGER: section, Hysterectomy HEENT: Tonsil/Adenoidectomy Derm: Other - Present Medications Home Medications: Ambulatory Orders Medication Instructions Recorded Confirmed Estradiol 0.25 mg PO DAILY 09/16/13 12/17/16 Omeprazole [PriLOSEC] 40 mg PO BID 09/16/13 12/17/16 Venlafaxine ER [Effexor ER] 75 mg PO DAILY 12/21/13 12/17/16 EPINEPHrine [Epipen 2-Trevor] 0.3 mg IJ ONCE PRN #1 unit 07/31/15 12/17/16 Zolpidem [Ambien] 10 mg PO HS 07/31/15 12/17/16 LORazepam [Ativan] 0.5 mg PO Q6H PRN 07/02/16 12/17/16 Progesterone, Micronized 100 mg PO DAILY 12/17/16 12/17/16 [Progesterone] oxyCODONE/ACET 5/325 [Percocet 5 1 - 2 tab PO Q4-6H PRN #20 tablet 12/17/16 mg/325 mg] oxyCODONE/ACET 5/325 [Percocet 5 1 tab PO PRN 12/17/16 mg/325 mg] predniSONE [Prednisone] 40 mg PO DAILY #6 tablet 10/09/17 Lidocaine Viscous 2% [Xylocaine 5 ml PO Q4H PRN #100 ml 08/13/18 Viscous 2%] Ondansetron Odt [Zofran] 4 mg TL Q6H PRN #20 tablet 08/13/18 Oxycodone HCl/Acetaminophen 1 each PO TID PRN #14 tablet 08/13/18 [Percocet 5-325 mg Tablet] Pantoprazole [Protonix] 40 mg PO DAILY #30 tablet 08/13/18 haloperidoL [Haloperidol] 2 mg PO BID PRN #15 tablet 08/13/18 EPINEPHrine [Epinephrine] 0.3 mg IJ ONCE PRN #1 auto.injct 09/19/19 Famotidine [Pepcid] 20 mg PO BID #6 tablet 09/19/19 diphenhydrAMINE [Benadryl] 25 mg PO BID #6 capsule 09/19/19 predniSONE [Prednisone] 40 mg PO DAILY #6 tablet 09/19/19 Dicyclomine [Bentyl] 10 mg PO QDAC PRN #15 tab 04/05/22 Ondansetron Odt [Zofran Odt] 4 mg TL Q6H PRN #10 tablet 04/05/22 Doxycycline [Vibramycin] 100 mg PO BID #19 tablet 11/24/22 Mupirocin 2% Oint [Bactroban 2% 1 applic TOP BID #22 gm 11/24/22 Oint] traMADol [Ultram] 50 - 100 mg PO Q6H PRN #20 tablet 11/24/22 - Allergies Allergies/Adverse Reactions: Allergies Allergy/AdvReac Type Severity Reaction Status Date / Time codeine Allergy Hives Verified 11/23/22 22:58 oxycodone Allergy Hives Verified 11/23/22 22:58 Sulfa (Sulfonamide Allergy Hives Verified 11/23/22 22:58 Antibiotics) venom-honey bee Allergy Hives Verified 11/23/22 22:58 [bee venom (honey bee)] bupropion [From Wellbutrin] AdvReac Unknown Verified 11/23/22 22:58 - Social History Does the pt smoke?: No Smoking Status: Former smoker Does the pt drink ETOH?: Yes Does the pt have substance abuse?: No - Immunizations Immunizations are current?: Yes - POLST Patient has POLST: No PD ED PE NORMAL - Vitals Vital signs reviewed: Yes - General General: Alert and oriented X 3, No acute distress, Well developed/nourished PD ED PE EXPANDED - HEENT HEENT Visual: 1 - swelling, tenderness (TTP, confluent erythema. no abscess. there is scant crusting mucosal aspect of the ala) Results - Vitals Vitals: Vital Signs - 24 hr 11/23/22 22:59 Temperature 37.0 C Heart Rate 76 Respiratory 16 Rate Blood Pressure 150/80 H O2 Saturation 100 Oxygen O2 Source Room air PD Medical Decision Making - ED course Complexity details: considered differential, d/w patient ED course: focal cellulitis right nare without fluctuance, no evidence of abscess/drainable collection. Given doxycycline and bactroban applied to mucosal aspect of the lesion, and e-prescribed both of these antibiotics. Return precautions discussed. She has been having inadequate pain relief with OTC medications but would like to avoid oxycodone and hydrocodone (rash/hives from oxycodone; hydrocodone only causes pruritis but to the extent that she would much prefer to avoid it). After discussion of other analgesic options, she is given two tablets 50mg tramadol (to take home, as she drove to ED) and rx provided for same. I encouraged her to continue the ibuprofen even if she needs to use the tramadol (in addition). I am prescribing a short course of short-acting opioid pain medication for this patient. I have reviewed the patients HORSER UP and no concerning findings were no wilber. I have discussed that the opioids are for short term therapy only, and will not be refilled from the ED. Departure - Departure Disposition: 01 Home, Self Care Clinical Impression: Cellulitis Qualifiers: Site of cellulitis: face Qualified Code(s): L03.211 - Cellulitis of face Condition: Good Instructions: ED Infec Skin Cellulitis Follow-Up: Melodie Lewis PA [Primary Care Provider] - Prescriptions: Mupirocin 2% Oint [Bactroban 2% Oint] 1 applic TOP BID #22 gm traMADol [Ultram] 50 - 100 mg PO Q6H PRN #20 tablet PRN Reason: Pain >8 Doxycycline [Vibramycin] 100 mg PO BID #19 tablet Comments: I have electronically submitted prescriptions for doxycycline (oral antibiotic), Bactroban (topical antibiotic), and tramadol (narcotic/opiate pain medication) to the [facility] pharmacy in [place]. It will take 1 to 2 days for the antibiotics to have a noticeable effect. I am prescribing a short course of narcotic pain medication for you. These are potentially dangerous and addictive medications that should be used carefully. These medications may constipate you. Take an fdoj-sae-iuvuuok stool softener (docusate) twice daily with plenty of water while taking these medications. If you go 24 hours without a bowel movement, take [id number]-[id number] miralax, per package instructions. Do not drink or drive while taking these medications. If you received narcotic or sedating medications while in the emergency depar tment, do not drive for 24 hours. Store this medication in a safe, secure place and out of reach of children. It is a violation of federal law to give or sell this medication to another person or to use in a manner other than prescribed. The ED will not refill narcotic prescriptions, including prescriptions lost or stolen. To dispose of unwanted medications: 1. [facility] at [address] in [place] has a medication drop box. They accept prescription medications (in pill form) Wednesday through Wednesday 9:00 a.m. to 5:00 p.m. 2. The [facility] accepts prescription medications (in pill form only) for disposal year round. Call for more information. 3. Contact the [facility] for the next [facility] sponsored prescription drug collection event. , [phone], or [phone]; Forms: PCP List Discharge Date/Time: 11/24/22 02:34
[2022-11-24] MEDS ORDERED: DOXYCYCLINE 100 MG TABLET PO STA (01:50)
[2022-11-24] MEDS ORDERED: traMADol 50 MG TABLET PO STA (01:50)
[2022-11-24] MEDS ORDERED: MUPIROCIN 2% OINT 1 GM NAS STA (01:51)
== END 2022-11-24 02:34 | disposition home or self-care (01) ==
LOC: ED 22:55
DX: L03.211 Cellulitis of face (principal); I10 Essential (primary) hypertension; Z79.899 Other long term (current) drug therapy; Z87.891 Personal history of nicotine dependence
CPT/HCPCS: 99282; 99283; A9270

== ENCOUNTER 2022-12-11 09:18 | Outpatient (CLI) | payer MEDICARE, OTHER ==
[2022-12-11 09:49] LABS: CREATININE 0.8 mg/dL (0.6-1.3)
[2022-12-11] MEDS ORDERED: GADOTERATE MEGLUMINE 10 MMOL/20 ML VIAL IVP ONE (10:55)
--- NOTE | 2022-12-11 11:45 | MRI Report ---
PROCEDURE: BRAIN W/WO INDICATIONS: HEADACE CONTRAST: CLARISCAN 11.4 ML TECHNIQUE: Noncontrast axial T1 spin echo, axial T2 fast spin echo, sagittal and axial FLAIR, coronal T2 fast sp in echo, axial gradient echo, axial diffusion and ADC through the brain. After the administration of contrast, axial and coronal T1 spin echo with fat saturation through the brain. COMPARISON: MRI brain 03/25/2015. FINDINGS: Image quality: Excellent. CSF spaces: Basal cisterns are patent. No extra-axial fluid collections. Ventricles are normal in size and shape. Brain: No midline shift. No intracranial bleeds or masses. No abnormal intracranial enhancement. There is mild cerebral volume loss for age. There are mild periventricular white matter chronic smal l vessel ischemic changes. The brainstem appears normal. Diffusion-weighted images demonstrate no a cute ischemic insults. No chronic ischemic insults. Normal intravascular flow voids are present. Skull and face: Calvarial marrow is normal in signal. Orbits appear normal. Sinuses: Sinuses and mastoids appear clear. IMPRESSION: 1.No cause for patient's symptoms is identified. 2.No acute intracranial abnormalities. 3.Mild age-related global volume loss and chronic microvascular ischemic changes. Reviewed by: Tomi Chamorro MD on 12/11/2022 11:44 AM PDT Approved by: Tomi Chamorro MD on 12/11/2022 11:44 AM PDT Station ID: [id number]
== END 2022-12-11 09:19 | disposition home or self-care (01) ==
LOC: LAB 09:18
PROVIDERS: ATTEND Physician Assistant
DX: R51.9 Headache, unspecified (principal); G31.89 Other specified degenerative diseases of nervous system; I67.82 Cerebral ischemia
CPT/HCPCS: 36415; 82565

== ENCOUNTER 2023-03-08 12:18 | Outpatient (CLI) | payer MEDICARE, BC ==
[2023-03-08 17:58] LABS: BASOPHILS # (AUTO) 0.1 10^3/uL (0.0-0.1); BASOPHILS % (AUTO) 1.1 %; EOSINOPHILS # (AUTO) 0.1 10^3/uL (0.0-0.7); EOSINOPHILS % (AUTO) 1.7 %; HCT - HEMATOCRIT 34.7 % (37.0-47.0); HGB - HEMOGLOBIN 11.1 g/dL (12.0-16.0); LYMPHOCYTES # (AUTO) 2.5 10^3/uL (1.5-3.5); LYMPHOCYTES % (AUTO) 30.1 %; MEAN CORPUSCULAR HEMOGLOBIN 29.8 pg (27.0-31.0); MEAN CORPUSCULAR VOLUME 93.3 fL (81.0-99.0); MONOCYTES # (AUTO) 0.7 10^3/uL (0.0-1.0); MONOCYTES % (AUTO) 8.5 %; NEUTROPHILS # (AUTO) 4.7 10^3/uL (1.5-6.6); NEUTROPHILS % (AUTO) 58.1 %; PLT - PLATELET COUNT 321 10^3/uL (130-450); RED BLOOD COUNT 3.72 10^6/uL (4.20-5.40); RED CELL DISTRIBUTION WIDTH 14.6 % (12.0-15.0); WHITE BLOOD COUNT 8.1 x10^3/uL (4.8-10.8)
[2023-03-08 18:58] LABS: ALBUMIN 4.4 g/dL (3.2-5.5); ALBUMIN/GLOBULIN RATIO 1.6 (1.0-2.2); BILIRUBIN,TOTAL 0.4 mg/dL (0.2-1.0); POTASSIUM 4.7 mmol/L (3.5-4.5); TOTAL PROTEIN 7.1 g/dL (6.4-8.9)
== END 2023-03-08 12:19 | disposition home or self-care (01) ==
LOC: LAB.N 12:18
PROVIDERS: ATTEND Physician Assistant
DX: K92.2 Gastrointestinal hemorrhage, unspecified (principal); R79.89 Other specified abnormal findings of blood chemistry
CPT/HCPCS: 36415; 80053; 85025

== ENCOUNTER 2023-03-20 16:22 | Outpatient (CLI) | payer MEDICARE, BC ==
[2023-03-20 19:33] LABS: BASOPHILS # (AUTO) 0.1 10^3/uL (0.0-0.1); BASOPHILS % (AUTO) 0.8 %; EOSINOPHILS # (AUTO) 0.1 10^3/uL (0.0-0.7); EOSINOPHILS % (AUTO) 1.4 %; HCT - HEMATOCRIT 31.2 % (37.0-47.0); HGB - HEMOGLOBIN 10.2 g/dL (12.0-16.0); LYMPHOCYTES # (AUTO) 1.4 10^3/uL (1.5-3.5); LYMPHOCYTES % (AUTO) 22.3 %; MEAN CORPUSCULAR HEMOGLOBIN 30.4 pg (27.0-31.0); MEAN CORPUSCULAR HGB CONC 32.7 g/dL (32.0-36.0); MEAN CORPUSCULAR VOLUME 92.9 fL (81.0-99.0); MEAN PLATELET VOLUME 10.4 fL (7.9-10.8); MONOCYTES # (AUTO) 0.6 10^3/uL (0.0-1.0); MONOCYTES % (AUTO) 8.5 %; NEUTROPHILS # (AUTO) 4.3 10^3/uL (1.5-6.6); NEUTROPHILS % (AUTO) 66.7 %; PLT - PLATELET COUNT 264 10^3/uL (130-450); RED BLOOD COUNT 3.36 10^6/uL (4.20-5.40); RED CELL DISTRIBUTION WIDTH 14.5 % (12.0-15.0); WHITE BLOOD COUNT 6.5 x10^3/uL (4.8-10.8)
[2023-03-20 19:51] LABS: ALBUMIN/GLOBULIN RATIO 1.8 (1.0-2.2); BILIRUBIN,TOTAL 0.3 mg/dL (0.2-1.0); CALCIUM 9.3 mg/dL (8.5-10.3); POTASSIUM 4.4 mmol/L (3.5-4.5); TOTAL PROTEIN 6.2 g/dL (6.4-8.9)
[2023-03-20 20:31] LABS: FERRITIN 12.4 ng/mL (11.0-306.8)
== END 2023-03-20 16:23 | disposition home or self-care (01) ==
LOC: LAB.N 16:22
PROVIDERS: ATTEND Physician Assistant
DX: K92.2 Gastrointestinal hemorrhage, unspecified (principal); R79.89 Other specified abnormal findings of blood chemistry; D64.9 Anemia, unspecified
CPT/HCPCS: 36415; 80053; 82728; 83540; 84466; 85025

== ENCOUNTER 2023-04-03 19:05 | Outpatient (CLI) | payer MEDICARE, BC | END 2023-04-03 23:59 | disposition critical access hospital (66) | LOC: EMS 19:05 | DX: R55 Syncope and collapse (principal); R42 Dizziness and giddiness; R11.0 Nausea; R06.02 Shortness of breath; R10.13 Epigastric pain | CPT/HCPCS: A0425; A0427 ==

== ENCOUNTER 2023-04-03 19:18 | Emergency (ER) | payer MEDICARE, BC ==
--- NOTE | 2023-04-03 19:35 | ED Physician Documentation ---
History of Present Illness - Stated complaint Stated Complaint: ABD PX/NEAR SYNCOPE - History obtained from History obtained from: Patient - Additonal information Additional information: 67-year-old woman with history of remote cholecystectomy, pancreas divisum, hiatal hernia with Rema, reflux, irritable bowel syndrome. Since her last ERCP done about 5 months ago (without stenting she has been losing weight. She lost about 15 pounds since last summer. She has not been compliant with her Creon. For months now she has had what sounds like orthostatic dizziness where she feels dizzy and lightheaded if she gets up too fast but is okay in the supine position. Today was associated with severe epigastric pain radiating to the back that is mostly better. She is nauseous frequently, but not today. States bowel movements have been normal for her noting that she has IBS so vacillates between diarrhea and constipation. 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 : None HEENT: None Psych: Depression, Anxiety, Panic attacks Musculoskeletal: Other Derm: None - Past Surgical History Past Surgical History: Yes General: Cholecystectomy Ortho: Other /TRAFFIC WORKFORCE REPRESENTATIVE: section, Hysterectomy HEENT: Tonsil/Adenoidectomy Derm: Other - Present Medications Home Medications: Ambulatory Orders Medication Instructions Recorded Confirmed Estradiol 0.25 mg PO DAILY 09/16/13 12/17/16 Omeprazole [PriLOSEC] 40 mg PO BID 09/16/13 04/03/23 Venlafaxine ER [Effexor ER] 75 mg PO DAILY 12/21/13 04/03/23 EPINEPHrine [Epipen 2-Trevor] 0.3 mg IJ ONCE PRN #1 unit 07/31/15 12/17/16 Zolpidem [Ambien] 10 mg PO HS 07/31/15 04/03/23 LORazepam [Ativan] 0.5 mg PO Q6H PRN 07/02/16 04/03/23 Progesterone, Micronized 100 mg PO DAILY 12/17/16 12/17/16 [Progesterone] oxyCODONE/ACET 5/325 [Percocet 5 1 - 2 tab PO Q4-6H PRN #20 tablet 12/17/16 mg/325 mg] oxyCODONE/ACET 5/325 [Percocet 5 1 tab PO PRN 12/17/16 mg/325 mg] predniSONE [Prednisone] 40 mg PO DAILY #6 tablet 10/09/17 Lidocaine Viscous 2% [Xylocaine 5 ml PO Q4H PRN #100 ml 08/13/18 Viscous 2%] Ondansetron Odt [Zofran] 4 mg TL Q6H PRN #20 tablet 08/13/18 Oxycodone HCl/Acetaminophen 1 each PO TID PRN #14 tablet 08/13/18 [Percocet 5-325 mg Tablet] Pantoprazole [Protonix] 40 mg PO DAILY #30 tablet 08/13/18 haloperidoL [Haloperidol] 2 mg PO BID PRN #15 tablet 08/13/18 EPINEPHrine [Epinephrine] 0.3 mg IJ ONCE PRN #1 auto.injct 09/19/19 Famotidine [Pepcid] 20 mg PO BID #6 tablet 09/19/19 diphenhydrAMINE [Benadryl] 25 mg PO BID #6 capsule 09/19/19 predniSONE [Prednisone] 40 mg PO DAILY #6 tablet 09/19/19 Dicyclomine [Bentyl] 10 mg PO QDAC PRN #15 tab 04/05/22 04/03/23 Ondansetron Odt [Zofran Odt] 4 mg TL Q6H PRN #10 tablet 04/05/22 Doxycycline [Vibramycin] 100 mg PO BID #19 tablet 11/24/22 Mupirocin 2% Oint [Bactroban 2% 1 applic TOP BID #22 gm 11/24/22 Oint] traMADol [Ultram] 50 - 100 mg PO Q6H PRN #20 tablet 11/24/22 04/03/23 Lisinopril [Zestril] 10 mg PO DAILY 04/03/23 04/03/23 hydrOXYzine pamoate [Hydroxyzine 25 mg PO PRN PRN 04/03/23 04/03/23 Pamoate] - Allergies Allergies/Adverse Reactions: Allergies Allergy/AdvReac Type Severity Reaction Status Date / Time codeine Allergy Hives Verified 04/03/23 19:51 oxycodone Allergy Hives Verified 04/03/23 19:51 Sulfa (Sulfonamide Allergy Hives Verified 04/03/23 19:51 Antibiotics) venom-honey bee Allergy Hives Verified 04/03/23 19:51 [bee venom (honey bee)] bupropion [From Wellbutrin] AdvReac Unknown Verified 04/03/23 19:51 - Social History Does the pt smoke?: No Smoking Status: Former smoker Does the pt drink ETOH?: Yes Does the pt have substance abuse?: No - Immunizations Immunizations are current?: Yes - POLST Patient has POLST: No PD ED PE NORMAL - Vitals Vital signs reviewed: Yes - General General: Alert and oriented X 3, No acute distress - Neck Neck: Supple, no meningeal sign, No bony TTP - Cardiac Cardiac: RRR, No murmur - Respiratory Respiratory: No respiratory distress, Clear bilaterally - Abdomen Abdomen: Soft, Non tender - Derm Derm: Normal color, Warm and dry - Extremities Extremities: No edema, No calf tenderness / cord - Neuro Neuro: Alert and oriented X 3, Normal speech Results - Vitals Vitals: Vital Signs - 24 hr 04/03/23 04/03/23 04/03/23 19:30 19:34 21:34 Temperature 37.2 C Heart Rate 84 84 78 Respiratory 19 19 20 Rate Blood Pressure 155/106 H 155/106 H 123/87 H O2 Saturation 100 100 97 Oxygen O2 Source Room air - EKG (time done) 1956 EKG releavant findings:: EKG personally interpreted by author of this note. Relevant findings are: Rate: Rate (enter#) (69) Rhythm: NSR [place]: Normal Intervals: Normal SC QRS: Normal Ischemia: Normal ST segments. No: ST elevation c/w ischemia - Labs Labs: Laboratory Tests 04/03/23 04/03/23 19:43 19:43 WBC 6.9 RBC 3.85 L Hgb 11.2 L Hct 35.6 L MCV 92.5 MCH 29.1 MCHC 31.5 L RDW 13.8 Plt Count 209 MPV 9.7 Neut # (Auto) 4.9 Lymph # (Auto) 1.3 L [place] # (Auto) 0.6 Eos # (Auto) 0.1 Baso # (Auto) 0.0 Absolute Nucleated RBC 0.00 Nucleated RBC % 0.0 Sodium 131 L Potassium 4.9 H Chloride 100 L Carbon Dioxide 25 Anion Gap 6.0 BUN 15 Creatinine 1.0 Estimated GFR (MDRD) 55 L Glucose 97 Calcium 8.7 Total Bilirubin 0.3 AST 13 ALT 11 Alkaline Phosphatase 79 Total Protein 5.5 L Albumin 3.6 Globulin 1.9 L Albumin/Globulin Ratio 1.9 Lipase 22 PD Medical Decision Making - ED course ED course: She presents with orthostatic dizziness that been ongoing for months with known history of pancreas disease him, history of cholecystectomy, hiatal hernia repair. Differential would include AAA, dissection, (but these seem less likely as her pain is improved and the dizziness has been going on for months). Could be dehydrated and potentially malnourished from her chronic pancreas issues and noncompliance with Creon. Lab work showing mild stable anemia, and CMP with hyponatremia and mild hyperkalemia consistent with dehydration. She was administered 2 L of IV fluids. Also some IV Zofran and was feeling somewhat better. Care to Dr. Haile at 10 [address] shift change [address] imaging which she is just on the way to at 10 PM. Departure - Departure Clinical Impression: Abdominal pain Instructions: ED Abdominal Pain Female Non-Specific Abdominal Pain Comments: Lab work shows mild stable anemia from prior, and your metabolic panel shows no elevation of liver or pancreatic enzymes, but does show evidence of dehydration. Forms: PCP List
[2023-04-03 19:47] LABS: BASOPHILS % (AUTO) 0.6 %; EOSINOPHILS # (AUTO) 0.1 10^3/uL (0.0-0.7); EOSINOPHILS % (AUTO) 0.9 %; HCT - HEMATOCRIT 35.6 % (37.0-47.0); HGB - HEMOGLOBIN 11.2 g/dL (12.0-16.0); LYMPHOCYTES # (AUTO) 1.3 10^3/uL (1.5-3.5); LYMPHOCYTES % (AUTO) 18.8 %; MEAN CORPUSCULAR HEMOGLOBIN 29.1 pg (27.0-31.0); MEAN CORPUSCULAR HGB CONC 31.5 g/dL (32.0-36.0); MEAN CORPUSCULAR VOLUME 92.5 fL (81.0-99.0); MEAN PLATELET VOLUME 9.7 fL (7.9-10.8); MONOCYTES # (AUTO) 0.6 10^3/uL (0.0-1.0); NEUTROPHILS # (AUTO) 4.9 10^3/uL (1.5-6.6); NEUTROPHILS % (AUTO) 70.3 %; PLT - PLATELET COUNT 209 10^3/uL (130-450); RED BLOOD COUNT 3.85 10^6/uL (4.20-5.40); RED CELL DISTRIBUTION WIDTH 13.8 % (12.0-15.0); WHITE BLOOD COUNT 6.9 x10^3/uL (4.8-10.8)
[2023-04-03] MEDS: SODIUM CHLORIDE 0.9% 1,000 ML IV STA ×2 (19:52→21:32)
[2023-04-03 20:06] LABS: ALBUMIN 3.6 g/dL (3.2-5.5); ALBUMIN/GLOBULIN RATIO 1.9 (1.0-2.2); BILIRUBIN,TOTAL 0.3 mg/dL (0.2-1.0); CALCIUM 8.7 mg/dL (8.5-10.3); POTASSIUM 4.9 mmol/L (3.5-4.5); TOTAL PROTEIN 5.5 g/dL (6.4-8.9)
[2023-04-03] MEDS ORDERED: iohexoL-300 100 ML VIAL ONE (20:58)
[2023-04-03] MEDS: ONDANSETRON 4 MG/2 ML VIAL IVP STA (21:21)
[2023-04-03] MEDS: iohexoL-300 100 ML VIAL IVP ONE (22:35)
[2023-04-03 23:09] VITALS: O2SAT 98
--- NOTE | 2023-04-03 23:20 | CT Report ---
PROCEDURE: Abdomen/Pelvis W INDICATIONS: iv ONLY, UPPER ABD PAIN CONTRAST: Intravenous nonionic 100 ML OMNI 300 TECHNIQUE: After the administration of intravenous contrast, a CT scan of the abdomen and pelvis was performed. Images were recorded and evaluated at appropriate window settings. Reformats: coronal and sagittal. F or radiation dose reduction, the following was used: automated exposure control, adjustment of mA and /or kV according to patient size. COMPARISON: Prior abdominal ultrasound 05/26/[address] 05/14/2022. FINDINGS: Image quality: Diagnostic. Lower chest: Unremarkable. Liver: No solid mass. Gallbladder and biliary tree: Spleen: No splenomegaly. Pancreas: No pancreatic ductal dilation. Adrenals: No adrenal nodule. Kidneys and ureters: No hydronephrosis. No renal cystic lesion which requires follow up. No solid mas s. Left lateral exophytic renal cortical cyst measures 3.8 cm. Stomach, bowel and peritoneum: No bowel distension. No pathologic free fluid. Mild colonic obstipatio n. Lymph nodes: No central or retroperitoneal adenopathy. Vessels: No infrarenal aortic aneurysm. PELVIS Reproductive organs: Unremarkable. Bladder: No abnormal wall thickening, accounting for underdistention. Pelvic lymph nodes: No pelvic adenopathy by size criteria. Bones: No aggressive osseous abnormality. Other: No significant ventral or inguinal hernia. Mild generalized colonic obstipation. IMPRESSION: Mild generalized colonic obstipation within the abdomen and pelvis. Prior cholecystectomy. No definit e acute disease. A normal or abnormal appendix could not be located but no secondary CT evidence of a cute appendicitis is found. Reviewed by: Dawson Harris MD on 04/03/2023 11:18 PM PST Approved by: Dawson Harris MD on 04/03/2023 11:18 PM PST Station ID: [id number]
[2023-04-04] MEDS: MAGNESIUM CITRATE 296 ML BOTTLE PO STA (00:13)
[2023-04-04 00:27] VITALS: BP 145/89
--- NOTE | 2023-04-07 13:21 | ED Physician Documentation ---
ED Addendum - Addendum Addendum: 04/07/23 13:18 I received sign-out on this patient from Dr. Rodríguez; please see his note for complete H+P. At time of sign out, results of CT A/P were pending. The results of the CT, per radiologist's interpretation, is generalized mild colonic obstipation but otherwise no concerning/diagnostic findings. I discussed the CT result with the patient. She is in NAD and is comfortable with d/c home. She is given a bottle of magnesium citrate to take home with instruction on use (I instructed her to drink 1/3 of the bottle every 2 hours until finished with the bottle or large BM). Return precautions discussed, advised to seek follow up with PCP for reevaluation.
== END 2023-04-04 00:18 | disposition home or self-care (01) ==
LOC: EDUNIT# → ED 19:18
DX: R10.13 Epigastric pain (principal); D64.9 Anemia, unspecified; E87.1 Hypo-osmolality and hyponatremia; E87.5 Hyperkalemia; I10 Essential (primary) hypertension; K21.9 Gastro-esophageal reflux disease without esophagitis; K58.9 Irritable bowel syndrome, unspecified; Z90.49 Acquired absence of other specified parts of digestive tract; Z79.899 Other long term (current) drug therapy; Z87.891 Personal history of nicotine dependence
CPT/HCPCS: 36415; 74177; 80053; 83690; 85025; 93005; 96361; 96374; 99284; A9270; Q9967

== ENCOUNTER 2023-04-18 05:24 | Outpatient (CLI) | payer MEDICARE, BC | END 2023-04-18 05:25 | disposition critical access hospital (66) | LOC: EMS 05:24 | DX: R10.84 Generalized abdominal pain (principal); R10.817 Generalized abdominal tenderness; I10 Essential (primary) hypertension; R23.8 Other skin changes | CPT/HCPCS: A0425; A0429 ==

== ENCOUNTER 2023-04-18 05:41 | Emergency (ER) | payer MEDICARE, BC ==
[2023-04-18] MEDS: SODIUM CHLORIDE 0.9% 1,000 ML IV STA ×4 (05:50→14:12)
[2023-04-18 05:57] LABS: BASOPHILS # (AUTO) 0.1 10^3/uL (0.0-0.1); BASOPHILS % (AUTO) 0.7 %; EOSINOPHILS % (AUTO) 0.6 %; HCT - HEMATOCRIT 34.9 % (37.0-47.0); HGB - HEMOGLOBIN 11.6 g/dL (12.0-16.0); LYMPHOCYTES # (AUTO) 1.8 10^3/uL (1.5-3.5); LYMPHOCYTES % (AUTO) 25.9 %; MEAN CORPUSCULAR HEMOGLOBIN 29.7 pg (27.0-31.0); MEAN CORPUSCULAR HGB CONC 33.2 g/dL (32.0-36.0); MEAN CORPUSCULAR VOLUME 89.3 fL (81.0-99.0); MEAN PLATELET VOLUME 9.2 fL (7.9-10.8); MONOCYTES # (AUTO) 0.7 10^3/uL (0.0-1.0); MONOCYTES % (AUTO) 9.4 %; NEUTROPHILS # (AUTO) 4.5 10^3/uL (1.5-6.6); NEUTROPHILS % (AUTO) 63.1 %; PLT - PLATELET COUNT 276 10^3/uL (130-450); RED BLOOD COUNT 3.91 10^6/uL (4.20-5.40); RED CELL DISTRIBUTION WIDTH 13.5 % (12.0-15.0); WHITE BLOOD COUNT 7.1 x10^3/uL (4.8-10.8)
[2023-04-18 06:12] LABS: ALBUMIN 4.6 g/dL (3.2-5.5); ALBUMIN/GLOBULIN RATIO 1.8 (1.0-2.2); BILIRUBIN,TOTAL 0.8 mg/dL (0.2-1.0); CREATININE 0.9 mg/dL (0.6-1.3); POTASSIUM 3.7 mmol/L (3.5-4.5); TOTAL PROTEIN 7.1 g/dL (6.4-8.9)
--- NOTE | 2023-04-18 06:19 | ED Physician Documentation ---
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 : None HEENT: None Psych: Depression, Anxiety, Panic attacks Musculoskeletal: Other Derm: None - Past Surgical History Past Surgical History: Yes General: Cholecystectomy Ortho: Other /GLOBAL SUPPLY CHAIN DIRECTOR: section, Hysterectomy HEENT: Tonsil/Adenoidectomy Derm: Other - Present Medications Home Medications: Ambulatory Orders Medication Instructions Recorded Confirmed Estradiol 0.25 mg PO DAILY 09/16/13 12/17/16 Omeprazole [PriLOSEC] 40 mg PO BID 09/16/13 04/03/23 Venlafaxine ER [Effexor ER] 75 mg PO DAILY 12/21/13 04/03/23 EPINEPHrine [Epipen 2-Trevor] 0.3 mg IJ ONCE PRN #1 unit 07/31/15 12/17/16 Zolpidem [Ambien] 10 mg PO HS 07/31/15 04/03/23 LORazepam [Ativan] 0.5 mg PO Q6H PRN 07/02/16 04/03/23 Progesterone, Micronized 100 mg PO DAILY 12/17/16 12/17/16 [Progesterone] oxyCODONE/ACET 5/325 [Percocet 5 1 - 2 tab PO Q4-6H PRN #20 tablet 12/17/16 mg/325 mg] oxyCODONE/ACET 5/325 [Percocet 5 1 tab PO PRN 12/17/16 mg/325 mg] predniSONE [Prednisone] 40 mg PO DAILY #6 tablet 10/09/17 Lidocaine Viscous 2% [Xylocaine 5 ml PO Q4H PRN #100 ml 08/13/18 Viscous 2%] Ondansetron Odt [Zofran] 4 mg TL Q6H PRN #20 tablet 08/13/18 Oxycodone HCl/Acetaminophen 1 each PO TID PRN #14 tablet 08/13/18 [Percocet 5-325 mg Tablet] Pantoprazole [Protonix] 40 mg PO DAILY #30 tablet 08/13/18 haloperidoL [Haloperidol] 2 mg PO BID PRN #15 tablet 08/13/18 EPINEPHrine [Epinephrine] 0.3 mg IJ ONCE PRN #1 auto.injct 09/19/19 Famotidine [Pepcid] 20 mg PO BID #6 tablet 09/19/19 diphenhydrAMINE [Benadryl] 25 mg PO BID #6 capsule 09/19/19 predniSONE [Prednisone] 40 mg PO DAILY #6 tablet 09/19/19 Dicyclomine [Bentyl] 10 mg PO QDAC PRN #15 tab 04/05/22 04/03/23 Ondansetron Odt [Zofran Odt] 4 mg TL Q6H PRN #10 tablet 04/05/22 Doxycycline [Vibramycin] 100 mg PO BID #19 tablet 11/24/22 Mupirocin 2% Oint [Bactroban 2% 1 applic TOP BID #22 gm 11/24/22 Oint] traMADol [Ultram] 50 - 100 mg PO Q6H PRN #20 tablet 11/24/22 04/03/23 Lisinopril [Zestril] 10 mg PO DAILY 04/03/23 04/03/23 hydrOXYzine pamoate [Hydroxyzine 25 mg PO PRN PRN 04/03/23 04/03/23 Pamoate] - Allergies Allergies/Adverse Reactions: Allergies Allergy/AdvReac Type Severity Reaction Status Date / Time codeine Allergy Hives Verified 04/18/23 05:52 oxycodone Allergy Hives Verified 04/18/23 05:52 Sulfa (Sulfonamide Allergy Hives Verified 04/18/23 05:52 Antibiotics) venom-honey bee Allergy Hives Verified 04/18/23 05:52 [bee venom (honey bee)] bupropion [From Wellbutrin] AdvReac Unknown Verified 04/18/23 05:52 - Social History Does the pt smoke?: No Smoking Status: Former smoker Does the pt drink ETOH?: Yes Does the pt have substance abuse?: No - Immunizations Immunizations are current?: Yes - POLST Patient has POLST: No Results - Vitals Vitals: Vital Signs - 24 hr 04/18/23 05:45 Temperature 36.6 C Heart Rate 84 Respiratory 16 Rate Blood Pressure 219/103 H O2 Saturation 100 Oxygen O2 Source Room air - Labs Labs: Laboratory Tests 04/18/23 04/18/23 05:48 05:48 WBC 7.1 RBC 3.91 L Hgb 11.6 L Hct 34.9 L MCV 89.3 MCH 29.7 MCHC 33.2 RDW 13.5 Plt Count 276 MPV 9.2 Neut # (Auto) 4.5 Lymph # (Auto) 1.8 [place] # (Auto) 0.7 Eos # (Auto) 0.0 Baso # (Auto) 0.1 Absolute Nucleated RBC 0.00 Nucleated RBC % 0.0 Sodium 131 L Potassium 3.7 Chloride 97 L Carbon Dioxide 24 Anion Gap 10.0 BUN 12 Creatinine 0.9 Estimated GFR (MDRD) 62 L Glucose 110 H Calcium 10.0 Total Bilirubin 0.8 AST 19 ALT 16 Alkaline Phosphatase 97 Total Protein 7.1 Albumin 4.6 Globulin 2.5 Albumin/Globulin Ratio 1.8 Lipase 10 L Departure - Departure
--- NOTE | 2023-04-18 07:56 | ED Physician Documentation ---
PD HPI ABD PAIN - Stated complaint Stated Complaint: DEHYDRATED/CONSTIPATION - Chief complaint Chief Complaint: Abd Pain - History obtained from History obtained from: Patient - History of Present Illness Timing - onset: How many weeks ago (2) Timing - duration: Weeks Timing - details: Gradual onset, Still present, Waxing and waning Quality: Cramping, Fullness/distended Location: All over / everywhere Improved by: BM Worsened by: Eating Associated symptoms: Nausea, Diarrhea, Constipation Similar symptoms before: No diagnosis, Work up / diagnostics (colonoscopy, ERCP) Recently seen: Clinic, Emergency Dept, Admitted, Surgery - Additional information Additional information: Dania Avery is a 67-year-old female who has had an issue with pancreatic divisum and she has had ERCP done in February. Following that the patient has developed some symptoms of abdominal pain weakness and fatigue. She was seen in the emergency department here on the 03 April with complaint of dizziness and lightheadedness she was hydrated a CT scan at that time showed obstipation. She was given medication for resolution of this she had a good result with that 2 days later she did a bowel prep for a colonoscopy. That colonoscopy showed a good prep but they were unable to get past the sigmoid colon secondary to a tight obstruction and the patient has been instructed to get a CT scan done at [facility] in [place] specifically looking for colon cancer. She has had a prior colonoscopy done which was negative in 2019. She has an appointment to see her plastic parts designer at [facility] in 2 days time. She is here today feeling lightheaded dizzy and having a difficult time concentrating. Review of Systems Constitutional: reports: Myalgias, Fatigue. denies: Fever Eyes: denies: Decreased vision Ears: reports: Ear pain (L at angle of jaw) Nose: denies: Rhinorrhea / runny nose Throat: denies: Sore throat Cardiac: denies: Chest pain / pressure, Palpitations Respiratory: reports: Dyspnea. denies: Cough GI: reports: Abdominal Pain, Nausea, Constipation, Diarrhea. denies: Vomiting (cannot vomit as she has had courtney) : reports: Frequency PD PAST MEDICAL HISTORY - Past Medical History Cardiovascular: Hypertension Respiratory: None Neuro: None Endocrine/Autoimmune: None GI: GERD, Pancreatitis JOINER HELPER: None : None HEENT: None Psych: Depression, Anxiety, Panic attacks Musculoskeletal: Other Derm: None - Past Surgical History Past Surgical History: Yes General: Cholecystectomy Ortho: Other /JOINER HELPER: section, Hysterectomy HEENT: Tonsil/Adenoidectomy Derm: Other - Present Medications Home Medications: Ambulatory Orders Medication Instructions Recorded Confirmed Estradiol 0.25 mg PO DAILY 09/16/13 12/17/16 Omeprazole [PriLOSEC] 40 mg PO BID 09/16/13 04/03/23 Venlafaxine ER [Effexor ER] 75 mg PO DAILY 12/21/13 04/03/23 EPINEPHrine [Epipen 2-Trevor] 0.3 mg IJ ONCE PRN #1 unit 07/31/15 12/17/16 Zolpidem [Ambien] 10 mg PO HS 07/31/15 04/03/23 LORazepam [Ativan] 0.5 mg PO Q6H PRN 07/02/16 04/03/23 Progesterone, Micronized 100 mg PO DAILY 12/17/16 12/17/16 [Progesterone] oxyCODONE/ACET 5/325 [Percocet 5 1 - 2 tab PO Q4-6H PRN #20 tablet 12/17/16 mg/325 mg] oxyCODONE/ACET 5/325 [Percocet 5 1 tab PO PRN 12/17/16 mg/325 mg] predniSONE [Prednisone] 40 mg PO DAILY #6 tablet 10/09/17 Lidocaine Viscous 2% [Xylocaine 5 ml PO Q4H PRN #100 ml 08/13/18 Viscous 2%] Ondansetron Odt [Zofran] 4 mg TL Q6H PRN #20 tablet 08/13/18 Oxycodone HCl/Acetaminophen 1 each PO TID PRN #14 tablet 08/13/18 [Percocet 5-325 mg Tablet] Pantoprazole [Protonix] 40 mg PO DAILY #30 tablet 08/13/18 haloperidoL [Haloperidol] 2 mg PO BID PRN #15 tablet 08/13/18 EPINEPHrine [Epinephrine] 0.3 mg IJ ONCE PRN #1 auto.injct 09/19/19 Famotidine [Pepcid] 20 mg PO BID #6 tablet 09/19/19 diphenhydrAMINE [Benadryl] 25 mg PO BID #6 capsule 09/19/19 predniSONE [Prednisone] 40 mg PO DAILY #6 tablet 09/19/19 Dicyclomine [Bentyl] 10 mg PO QDAC PRN #15 tab 04/05/22 04/03/23 Ondansetron Odt [Zofran Odt] 4 mg TL Q6H PRN #10 tablet 04/05/22 Doxycycline [Vibramycin] 100 mg PO BID #19 tablet 11/24/22 Mupirocin 2% Oint [Bactroban 2% 1 applic TOP BID #22 gm 11/24/22 Oint] traMADol [Ultram] 50 - 100 mg PO Q6H PRN #20 tablet 11/24/22 04/03/23 Lisinopril [Zestril] 10 mg PO DAILY 04/03/23 04/03/23 hydrOXYzine pamoate [Hydroxyzine 25 mg PO PRN PRN 04/03/23 04/03/23 Pamoate] - Allergies Allergies/Adverse Reactions: Allergies Allergy/AdvReac Type Severity Reaction Status Date / Time codeine Allergy Hives Verified 04/18/23 05:52 oxycodone Allergy Hives Verified 04/18/23 05:52 Sulfa (Sulfonamide Allergy Hives Verified 04/18/23 05:52 Antibiotics) venom-honey bee Allergy Hives Verified 04/18/23 05:52 [bee venom (honey bee)] bupropion [From Wellbutrin] AdvReac Unknown Verified 04/18/23 05:52 - Social History Does the pt smoke?: No Smoking Status: Former smoker Does the pt drink ETOH?: Yes Does the pt have substance abuse?: No - Immunizations Immunizations are current?: Yes - POLST Patient has POLST: No PD ED PE NORMAL - Vitals Vital signs reviewed: Yes (hypertensive ) - General General: Alert and oriented X 3, Well developed/nourished, Other (67-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 and 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 appears concerned and has dry mucous membranes.) - HEENT HEENT: Atraumatic, PERRL, EOMI, Other (Dry mucous membranes) - Neck Neck: Supple, no meningeal sign, No bony TTP - Cardiac Cardiac: RRR, No murmur - Respiratory Respiratory: No respiratory distress, Clear bilaterally - Abdomen Abdomen: Normal bowel sounds, Soft, Non tender, Non distended, No organomegaly - Back Back: No CVA TTP, No spinal TTP - Derm Derm: Normal color, Warm and dry, No rash - Extremities Extremities: No deformity, No edema - Neuro Neuro: Alert and oriented X 3, network systems operator 2-12 intact, No motor deficit, No sensory deficit, Normal speech Eye Opening: Spontaneous Motor: Obeys Commands Verbal: Oriented GCS Score: 15 - Psych Psych: Normal mood Results - Vitals Vitals: Vital Signs - 24 hr 04/18/23 04/18/23 04/18/23 05:45 07:59 10:00 Temperature 36.6 C Heart Rate 84 96 78 Respiratory 16 22 18 Rate Blood Pressure 219/103 H 226/105 H 188/80 H O2 Saturation 100 100 100 04/18/23 12:00 Temperature Heart Rate 87 Respiratory 14 Rate Blood Pressure 187/99 H O2 Saturation 100 Oxygen O2 Source Room air - Labs Labs: Laboratory Tests 04/18/23 04/18/23 04/18/23 05:48 05:48 09:20 WBC 7.1 RBC 3.91 L Hgb 11.6 L Hct 34.9 L MCV 89.3 MCH 29.7 MCHC 33.2 RDW 13.5 Plt Count 276 MPV 9.2 Neut # (Auto) 4.5 Lymph # (Auto) 1.8 [place] # (Auto) 0.7 Eos # (Auto) 0.0 Baso # (Auto) 0.1 Absolute Nucleated RBC 0.00 Nucleated RBC % 0.0 Sodium 131 L Potassium 3.7 Chloride 97 L Carbon Dioxide 24 Anion Gap 10.0 BUN 12 Creatinine 0.9 Estimated GFR (MDRD) 62 L Glucose 110 H Calcium 10.0 Total Bilirubin 0.8 AST 19 ALT 16 Alkaline Phosphatase 97 Total Protein 7.1 Albumin 4.6 Globulin 2.5 Albumin/Globulin Ratio 1.8 Lipase 10 L Urine Color YELLOW Urine Clarity CLEAR Urine pH 7.0 Ur Specific [place] 1.010 Urine Protein NEGATIVE Urine Glucose (UA) NEGATIVE Urine Ketones TRACE Urine Occult Blood NEGATIVE Urine Nitrite NEGATIVE Urine Bilirubin NEGATIVE Urine Urobilinogen 0.2 (NORMAL) Ur Leukocyte Esterase NEGATIVE Ur Microscopic Review NOT INDICATED Urine Culture Comments NOT INDICATED Procedures - IVC sono (time) 0745 Bedside IVC sono: IVC measures (cm) (0.6), IVC collapsed c insp (cm) (complete), Profound dehydration (est > 3 liter deficit dessicication encephalopathy) 1200 Bedside IVC sono: IVC measures (cm) (0.83), Dehydration (est 2 liter deficit) 1520 Bedside IVC sono: IVC measures (cm) (0.93), Dehydration (est 1-2 liter deficit) PD Medical Decision Making - ED course Complexity details: reviewed results, re-evaluated patient, considered d ifferential, d/w patient Reviewed Lab Results: We reviewed a complete blood count showing a normal white blood cell count a depressed hemoglobin and hematocrit in the range of the patient has had most recently in our facility over the past year. Similar for her hematocrit. Chemistries show a sodium low at 131 chloride low at 97 BUN and creatinine are normal glucose is normal at 110 liver functions all normal. Bilirubin normal at 0.8 urinalysis is unremarkable showing a clear yellow urine with specific gravity 1.010 negative for leukocyte Estrace and negative for nitrite. My interpretation of these laboratory studies show nothing specific and do not contribute to a specific diagnosis. It does help rule out urinary tract infection as a reason for frequency. Despite her level of dehydration which is significant even past the point of desiccation encephalopathy her urine specific gravity is 1.010 and her BUN and Cr are normal. My interpretation of this is t hat the dehydration is acute on chronic. Her specific gravity on her urine has always been low. 1.005 or 1.010. She is not on a diuretic and she does not have diabetes. ED course: Dania Avery presents to the emergency department feeling unwell this morning having a difficult time concentrating and feeling weak dizzy and lightheaded. She was found to be profoundly dehydrated and despite this her urine showed a low specific gravity. We replaced fluid and we measured her inferior vena cava and she had a slow response to treatment. After 4 L she has improvement but not resolution. We addressed the low specific gravity by reviewing her supplements and she is on licorice root as a possible diuretic. She has been asked to stop the supplements and to contact the financial planning assistant about other components of her supplements that may have diuretic effect. She has appointment in 2 days to see the plastic parts designer. Departure - Departure Disposition: 01 Home, Self Care Clinical Impression: Dehydration Condition: Stable Instructions: ED Dehydration Follow-Up: Melodie Lewis PA [Primary Care Provider] - Comments: Dania, today in the emergency department we found that you were profoundly dehydrated and we have provided IV hydration. This should give you some buffer to make it through your appointment on Wednesday with your plastic parts designer. Today we found that your urine was paradoxically dilute suggesting that a diuretic effect may be present. My recommendation is to stop the two supplements you are on and contact Dr. Lebron about the potential diuretic effects of any component of the preparations. The licorice root is a diuretic. Forms: PCP List
[2023-04-18 09:31] LABS: BILIRUBIN,URINE NEGATIVE (NEGATIVE); GLUCOSE, URINE (UA) NEGATIVE (NEGATIVE); KETONES,URINE (UA) TRACE mg/dL (NEGATIVE); LEUKOCYTE ESTERASE, URINE NEGATIVE (NEGATIVE); NITRITE,URINE NEGATIVE (NEGATIVE); OCCULT BLOOD,URINE NEGATIVE (NEGATIVE); PROTEIN,URINE NEGATIVE (NEGATIVE); UROBILINOGEN,URINE 0.2 (NORMAL) E.U./dL (NORMAL)
[2023-04-18 09:32] LABS: CLARITY,URINE CLEAR (CLEAR)
[2023-04-18] MEDS: ONDANSETRON 4 MG/2 ML VIAL IVP STA (16:22)
[2023-04-18] MEDS: MORPHINE 2 MG/ML CARPUJECT IVP STA (16:22)
[2023-04-18 17:32] VITALS: BP 178/88; O2SAT 98
== END 2023-04-18 17:24 | disposition home or self-care (01) ==
LOC: EDUNIT# → ED 05:41
DX: E86.0 Dehydration (principal); I10 Essential (primary) hypertension; Z79.899 Other long term (current) drug therapy; Z87.891 Personal history of nicotine dependence
CPT/HCPCS: 36415; 80053; 81001; 81003; 83690; 85025; 87086; 96361; 96374; 99284

== ENCOUNTER 2023-06-17 09:00 | Outpatient (CLI) | payer MEDICARE, BC ==
[2023-06-17 12:11] LABS: BUN - BLOOD UREA NITROGEN 18 mg/dL (6-20); CARBON DIOXIDE - CO2 29 mmol/L (21-32); CHLORIDE 101 mmol/L (101-111); CHOL/HDL RATIO 3.7 (<4.4); CHOLESTEROL 239 mg/dL; CREATININE 0.9 mg/dL (0.6-1.3); GFR - MDRD 62 (>89); GLUCOSE 93 mg/dL (74-104); HDL CHOLESTEROL 65 mg/dL; LDL CHOLESTEROL,CALCULATED 156 mg/dL; LDL/HDL RATIO 2.4 (<4.4); POTASSIUM 4.2 mmol/L (3.5-4.5); SODIUM 135 mmol/L (135-145); TRIGLYCERIDES 92 mg/dL (48-352); VLDL CHOLESTEROL 18 mg/dL
[2023-06-17 12:13] LABS: THYROID STIMULATING HORMONE 0.88 uIU/mL (0.34-5.60)
== END 2023-06-17 09:01 | disposition home or self-care (01) ==
LOC: LAB.N 09:00
PROVIDERS: ATTEND Physician Assistant
DX: E87.1 Hypo-osmolality and hyponatremia (principal); E78.5 Hyperlipidemia, unspecified; K59.09 Other constipation
CPT/HCPCS: 36415; 80048; 80061; 83721; 84443

== ENCOUNTER 2023-07-10 14:05 | Outpatient (CLI) | payer MEDICARE, BC | END 2023-07-10 23:59 | disposition critical access hospital (66) | LOC: EMS 14:05 | DX: R10.11 Right upper quadrant pain (principal); R11.0 Nausea | CPT/HCPCS: A0425; A0427 ==

== ENCOUNTER 2023-07-10 14:17 | Emergency (ER) | payer MEDICARE, BC ==
[2023-07-10 14:49] LABS: BASOPHILS % (AUTO) 0.9 %; EOSINOPHILS % (AUTO) 0.9 %; HCT - HEMATOCRIT 33.7 % (37.0-47.0); HGB - HEMOGLOBIN 11.1 g/dL (12.0-16.0); LYMPHOCYTES % (AUTO) 23.7 %; MEAN CORPUSCULAR HGB CONC 32.9 g/dL (32.0-36.0); MEAN PLATELET VOLUME 9.8 fL (7.9-10.8); MONOCYTES # (AUTO) 0.4 10^3/uL (0.0-1.0); MONOCYTES % (AUTO) 9.8 %; NEUTROPHILS # (AUTO) 2.8 10^3/uL (1.5-6.6); NEUTROPHILS % (AUTO) 64.5 %; PLT - PLATELET COUNT 209 10^3/uL (130-450); RED BLOOD COUNT 3.83 10^6/uL (4.20-5.40); RED CELL DISTRIBUTION WIDTH 13.9 % (12.0-15.0); WHITE BLOOD COUNT 4.3 x10^3/uL (4.8-10.8)
--- NOTE | 2023-07-10 14:57 | ED Physician Documentation ---
PD HPI ABD PAIN - Stated complaint Stated Complaint: ABD PX - Chief complaint Chief Complaint: Abd Pain - Treatment prior to arrival Treatment prior to arrival: 67-year-old female who has a history of anxiety and panic attacks, frequent abdo loreto pain for which she is followed by GI, has a history of cholecystectomy, pancreatic divisum, prior pancreatitis. She presents today with upper abdominal discomfort ago she is also concerned about constipation stating she has not had a bowel movement for couple days, she has not had a fever, no vomiting. She has had decreased appetite however. She Has been feeling increasingly anxious and u pset recently stating she "just wanted to finally have some good days." She is followed by GI up in [facility] and states she would "see them every month if I was able to."She does take dicyclomine when she has stomach cramps/tightness, and has taken it twice today without relief. She asked for a medication for anxiety stating she takes lorazepam at home, she takes it every day to every other day, typically a 30 tablet prescription will last her 5 or 6 weeks. Per [facility] pt gets 60 tablets of 1mg lorazepam usually monthly though last filled on 06/02 Review of Systems Constitutional: reports: Reviewed and negative Eyes: reports: Reviewed and negative Ears: reports: Reviewed and negative Nose: reports: Reviewed and negative Throat: reports: Reviewed and negative Cardiac: reports: Reviewed and negative Respiratory: reports: Reviewed and negative GI: reports: Abdominal Pain, Nausea, Constipation. denies: Abdominal Swelling, Vomiting, Diarrhea, Hematemesis : reports: Reviewed and negative Skin: reports: Reviewed and negative Musculoskeletal: reports: Reviewed and negative Neurologic: reports: Reviewed and negative Psychiatric: reports: Anxiety PD PAST MEDICAL HISTORY - Past Medical History Past Medical History: Yes Cardiovascular: Hypertension Respiratory: None Neuro: None Endocrine/Autoimmune: None GI: GERD, Pancreatitis CRITICAL CARE CNS: None : None HEENT: None Psych: Depression, Anxiety, Panic attacks Musculoskeletal: Other Derm: None - Past Surgical History Past Surgical History: Yes General: Cholecystectomy Ortho: Other /CRITICAL CARE CNS: section, Hysterectomy HEENT: Tonsil/Adenoidectomy Derm: Other - Present Medications Home Medications: Ambulatory Orders Medication Instructions Recorded Confirmed Dicyclomine HCl 20 mg PO QID PRN 07/10/23 07/10/23 LORazepam [Lorazepam] 1 mg PO BID PRN 07/10/23 07/10/23 Omeprazole 20 mg PO DAILY 07/10/23 07/10/23 Venlafaxine Besylate [Venlafaxine 225 mg PO DAILY 07/10/23 07/10/23 Besylate ER] Zolpidem Tartrate [Ambien] 10 mg PO HS 07/10/23 07/10/23 hydrOXYzine HCL [Hydroxyzine HCl] 25 mg PO HS 07/10/23 07/10/23 lisinopriL [Lisinopril] 10 mg PO DAILY 07/10/23 07/10/23 - Allergies Allergies/Adverse Reactions: Allergies Allergy/AdvReac Type Severity Reaction Status Date / Time codeine Allergy Hives Verified 07/10/23 14:31 oxycodone Allergy Hives Verified 07/10/23 14:31 Sulfa (Sulfonamide Allergy Hives Verified 07/10/23 14:31 Antibiotics) venom-honey bee Allergy Hives Verified 07/10/23 14:31 [bee venom (honey bee)] bupropion [From Wellbutrin] AdvReac Unknown Verified 07/10/23 14:31 - Social History Does the pt smoke?: No Smoking Status: Never smoker Does the pt drink ETOH?: Yes Does the pt have substance abuse?: No - Immunizations Immunizations are current?: Yes - POLST Patient has POLST: No PD ED PE NORMAL - Vitals Vital signs reviewed: Yes - General General: Alert and oriented X 3, No acute distress, Well developed/nourished - HEENT HEENT: Atraumatic, Moist mucous membranes - Cardiac Cardiac: RRR, No murmur - Respiratory Respiratory: No respiratory distress, Clear bilaterally - Abdomen Abdomen: Normal bowel sounds, Soft, Non distended, Other (mild mid epigastric/luq ttp) - Back Back: No CVA TTP, No spinal TTP - Derm Derm: Normal color, Warm and dry, No rash - Neuro Neuro: Alert and oriented X 3 Eye Opening: Spontaneous Motor: Obeys Commands Verbal: Oriented GCS Score: 15 - Psych Psych: Other (crying, concerned affect) Results - Vitals Vitals: Vital Signs - 24 hr 07/10/23 07/10/23 07/10/23 14:26 16:04 17:06 Temperature 36 C L Heart Rate 73 74 70 Respiratory 15 16 15 Rate Blood Pressure 221/120 H 154/79 H 147/89 H O2 Saturation 100 98 98 Oxygen O2 Source Room air - Labs Labs: Laboratory Tests 07/10/23 07/10/23 07/10/23 14:43 14:43 15:54 WBC 4.3 L RBC 3.83 L Hgb 11.1 L Hct 33.7 L MCV 88.0 MCH 29.0 MCHC 32.9 RDW 13.9 Plt Count 209 MPV 9.8 Neut # (Auto) 2.8 Lymph # (Auto) 1.0 L [place] # (Auto) 0.4 Eos # (Auto) 0.0 Baso # (Auto) 0.0 Absolute Nucleated RBC 0.00 Nucleated RBC % 0.0 Sodium 130 L Potassium 4.6 H Chloride 98 L Carbon Dioxide 29 Anion Gap 3.0 L BUN 9 Creatinine 0.8 Estimated GFR (MDRD) 71 L Glucose 98 Calcium 9.4 Total Bilirubin 0.4 AST 16 ALT 12 Alkaline Phosphatase 99 Total Protein 6.2 L Albumin 4.0 Globulin 2.2 Albumin/Globulin Ratio 1.8 Lipase 13 Urine Color YELLOW Urine Clarity CLEAR Urine pH 7.5 Ur Specific [place] 1.010 Urine Protein NEGATIVE Urine Glucose (UA) NEGATIVE Urine Ketones NEGATIVE Urine Occult Blood NEGATIVE Urine Nitrite NEGATIVE Urine Bilirubin NEGATIVE Urine Urobilinogen 0.2 (NORMAL) Ur Leukocyte Esterase NEGATIVE Ur Microscopic Review NOT INDICATED Urine Culture Comments NOT INDICATED - Rads (name of study) No standard instances Relevant Findings:: Final report received PD Medical Decision Making - ED course Complexity details: reviewed old records, reviewed results, re-evaluated patient, considered differential, d/w patient ED course: This is a 67-year-old female with a past medical history as above who presented with abdominal pain as described in HPI. She is very concerned on initial exam, tearful, and hypertensive. She has a reassuring physical exam otherwise however without any signs of acute abdomen. The patient requested anxiety medicine therefore she was given 1 mg of IV lorazepam with substantial improvement in her symptoms. We collected lab work which is very reassuring including stable CBC, her CMP shows a sodium 130 potassium 4.6 otherwise unremarkable, urinalysis negative for signs of infection. She was given 1 L normal saline. Given patient's significant pain however I did obtain a CT scan of her abdomen and pelvis which shows increased Stool in the colon but no other acute findings. The patient was reassured, but continued to be very concerned about her abdominal pain. On further discussion with patient this pain has been present more or less since November 2022 and it sounds as though she has seen a GI several times and additional specialist without any answers to why she has pain. She is extremely frustrated understandably but I discussed with patient that at this point in time I do not see an emergent etiology of her pain but recommended that she continue to work with GI. I do think that there is a likely irritable bowel component, and she also suffers from significant anxiety with chronic benzo use which is likely contributing as well. I declined to prescribe her any narcotic pain medication because it would only exacerbate her constipation symptoms, and she states understanding. She did get some relief from the Toradol given by EMS therefore we discussed using ibuprofen or naproxen at home as well as Tylenol. I offered additional bowel regimen such as lactulose, MiraLAX, or suppository but patient states she has all of the above at home though uses only sometimes. The patient is stable for discharge home at this time, return precautions reviewed. Departure - Departure Disposition: 01 Home, Self Care Clinical Impression: Anxiety, Hyponatremia Constipation Qualifiers: Constipation type: unspecified constipation type Qualified Code(s): K59.00 - Constipation, unspecified Condition: Good Instructions: ED Stress React, ED Constipation Comments: Your CT scan today was reassuring, you do have a large amount of stool in the colon but no sign of pancreatitis or acute infections, and your labs are generally stable though your sodium is slightly low probably because you have been drinking mostly water recently. Please increase your bowel regimen, you can consider taking MiraLAX twice a day and also [id number] suppository, or take the lactulose that you have been prescribed.I would like you to follow- up with your GI doctor and your primary doctor as soon as you are able to. I do think your symptoms are possibly stress and anxiety related as well. Please continue follow-up with your primary doctor and GI. Ask them about additional medication for irritable bowel syndrome. I am sorry that we are unable to figure out what has caused you to be on [place] over the course of the last 8 months or so and I know this is frustrating but please continue to work with your specialist for this issue. Forms: PCP List Discharge Date/Time: 07/10/23 17:07
[2023-07-10 15:03] LABS: ALBUMIN/GLOBULIN RATIO 1.8 (1.0-2.2); BILIRUBIN,TOTAL 0.4 mg/dL (0.2-1.0); CALCIUM 9.4 mg/dL (8.5-10.3); CREATININE 0.8 mg/dL (0.6-1.3); POTASSIUM 4.6 mmol/L (3.5-4.5); TOTAL PROTEIN 6.2 g/dL (6.4-8.9)
[2023-07-10] MEDS: LORazepam 2 MG/ML VIAL IVP STA (15:12)
[2023-07-10] MEDS: SODIUM CHLORIDE 0.9% 1,000 ML IV STA (15:13)
[2023-07-10] MEDS ORDERED: iohexoL-300 100 ML VIAL ONE (15:32)
[2023-07-10 16:10] VITALS: O2SAT 98
[2023-07-10 16:14] LABS: BILIRUBIN,URINE NEGATIVE (NEGATIVE); GLUCOSE, URINE (UA) NEGATIVE (NEGATIVE); KETONES,URINE (UA) NEGATIVE (NEGATIVE); LEUKOCYTE ESTERASE, URINE NEGATIVE (NEGATIVE); NITRITE,URINE NEGATIVE (NEGATIVE); OCCULT BLOOD,URINE NEGATIVE (NEGATIVE); PH,URINE 7.5 PH (5.0-7.5); PROTEIN,URINE NEGATIVE (NEGATIVE); UROBILINOGEN,URINE 0.2 (NORMAL) E.U./dL (NORMAL)
[2023-07-10 16:18] LABS: CLARITY,URINE CLEAR (CLEAR)
--- NOTE | 2023-07-10 16:22 | CT Report ---
PROCEDURE: Abdomen/Pelvis W INDICATIONS: abd pain CONTRAST: 100ml omni 300 TECHNIQUE: After the administration of intravenous contrast, a CT scan of the abdomen and pelvis was performed. Images were recorded and evaluated at appropriate window settings. Reformats: coronal and sagittal. F or radiation dose reduction, the following was used: automated exposure control, adjustment of mA and /or kV according to patient size. COMPARISON: None. FINDINGS: Image quality: Diagnostic. Lower chest: Unremarkable. Liver: No solid mass. Gallbladder: Is not well-visualized, likely surgically absent Biliary tree: No intrahepatic or extrahepatic dilation, accounting for age. Spleen: No splenomegaly. Pancreas: No pancreatic ductal dilation. Adrenals: No adrenal nodule. Kidneys and ureters: No hydronephrosis. No renal cystic lesion which requires follow up. No solid mas s. Mild right pelviectasis without calyceal dilation. Stomach, bowel and peritoneum: No gastric or small bowel dilation. No abnormal wall thickening. No pa thologic free fluid. Large stool volume Lymph nodes: No central or retroperitoneal adenopathy. Vessels: No infrarenal aortic aneurysm. Patent portal vein. PELVIS Reproductive organs: Prior hysterectomy Bladder: No abnormal wall thickening, accounting for underdistention. Pelvic lymph nodes: No pelvic adenopathy by size criteria. Bones: No aggressive osseous abnormality. Other: No significant ventral or inguinal hernia. IMPRESSION: No acute findings in the abdomen or pelvis to explain patient's symptoms. Large stool volume. Reviewed by: Luis Saxena MD on 07/10/2023 3:21 PM NESHA Approved by: Luis Saxena MD on 07/10/2023 3:21 PM AKDT Station ID: [id number]
[2023-07-10 17:18] VITALS: BP 147/89
[2023-07-10] MEDS: iohexoL-300 100 ML VIAL IVP ONE (18:12)
== END 2023-07-10 17:07 | disposition home or self-care (01) ==
LOC: EDUNIT# → ED 14:17
DX: F41.9 Anxiety disorder, unspecified (principal); K59.00 Constipation, unspecified; E87.1 Hypo-osmolality and hyponatremia; I10 Essential (primary) hypertension
CPT/HCPCS: 36415; 74177; 80053; 81003; 83690; 85025; 96374; 99284; J2060; Q9967; 81001; 87086

== ENCOUNTER 2023-07-30 16:20 | Outpatient (CLI) | payer MEDICARE, BC ==
[2023-07-30 16:51] LABS: BASOPHILS # (AUTO) 0.1 10^3/uL (0.0-0.1); BASOPHILS % (AUTO) 0.9 %; EOSINOPHILS # (AUTO) 0.1 10^3/uL (0.0-0.7); EOSINOPHILS % (AUTO) 1.7 %; HCT - HEMATOCRIT 34.7 % (37.0-47.0); HGB - HEMOGLOBIN 11.2 g/dL (12.0-16.0); LYMPHOCYTES # (AUTO) 1.4 10^3/uL (1.5-3.5); LYMPHOCYTES % (AUTO) 24.4 %; MEAN CORPUSCULAR HEMOGLOBIN 28.6 pg (27.0-31.0); MEAN CORPUSCULAR HGB CONC 32.3 g/dL (32.0-36.0); MEAN CORPUSCULAR VOLUME 88.7 fL (81.0-99.0); MEAN PLATELET VOLUME 9.3 fL (7.9-10.8); MONOCYTES # (AUTO) 0.5 10^3/uL (0.0-1.0); MONOCYTES % (AUTO) 9.2 %; NEUTROPHILS # (AUTO) 3.7 10^3/uL (1.5-6.6); NEUTROPHILS % (AUTO) 63.6 %; PLT - PLATELET COUNT 268 10^3/uL (130-450); RED BLOOD COUNT 3.91 10^6/uL (4.20-5.40); RED CELL DISTRIBUTION WIDTH 14.2 % (12.0-15.0); WHITE BLOOD COUNT 5.8 x10^3/uL (4.8-10.8)
[2023-07-30 17:07] LABS: ALBUMIN/GLOBULIN RATIO 1.7 (1.0-2.2); BILIRUBIN,TOTAL 0.3 mg/dL (0.2-1.0); CALCIUM 9.4 mg/dL (8.5-10.3); CREATININE 0.9 mg/dL (0.6-1.3); POTASSIUM 4.3 mmol/L (3.5-4.5); TOTAL PROTEIN 6.3 g/dL (6.4-8.9)
== END 2023-07-30 16:21 | disposition home or self-care (01) ==
LOC: LAB 16:20
PROVIDERS: ATTEND Physician Assistant
DX: R50.9 Fever, unspecified (principal); K83.4 Spasm of sphincter of Oddi; K86.1 Other chronic pancreatitis; R53.83 Other fatigue; R25.1 Tremor, unspecified
CPT/HCPCS: 36415; 80053; 83690; 85025

== ENCOUNTER 2023-09-07 18:03 | Emergency (ER) | payer MEDICARE, BC ==
[2023-09-07 18:26] VITALS: BP 178/95; O2SAT 98
[2023-09-07 18:32] LABS: BASOPHILS # (AUTO) 0.1 10^3/uL (0.0-0.1); BASOPHILS % (AUTO) 0.7 %; EOSINOPHILS # (AUTO) 0.1 10^3/uL (0.0-0.7); HGB - HEMOGLOBIN 10.7 g/dL (12.0-16.0); LYMPHOCYTES # (AUTO) 2.3 10^3/uL (1.5-3.5); LYMPHOCYTES % (AUTO) 25.5 %; MEAN CORPUSCULAR HEMOGLOBIN 29.2 pg (27.0-31.0); MEAN CORPUSCULAR HGB CONC 32.4 g/dL (32.0-36.0); MEAN CORPUSCULAR VOLUME 90.2 fL (81.0-99.0); MEAN PLATELET VOLUME 9.3 fL (7.9-10.8); MONOCYTES # (AUTO) 0.7 10^3/uL (0.0-1.0); MONOCYTES % (AUTO) 7.5 %; NEUTROPHILS # (AUTO) 5.7 10^3/uL (1.5-6.6); PLT - PLATELET COUNT 240 10^3/uL (130-450); RED BLOOD COUNT 3.66 10^6/uL (4.20-5.40); RED CELL DISTRIBUTION WIDTH 14.7 % (12.0-15.0); WHITE BLOOD COUNT 8.8 x10^3/uL (4.8-10.8)
[2023-09-07 18:59] LABS: ALBUMIN 4.6 g/dL (3.2-5.5); BILIRUBIN,TOTAL 0.3 mg/dL (0.2-1.0); CALCIUM 10.1 mg/dL (8.5-10.3); CREATININE 0.7 mg/dL (0.6-1.3); POTASSIUM 3.8 mmol/L (3.5-4.5); TOTAL PROTEIN 6.9 g/dL (6.4-8.9)
--- NOTE | 2023-09-07 19:22 | ED Physician Documentation ---
History of Present Illness - Stated complaint Stated Complaint: ABNORMAL LABS - Chief complaint Chief Complaint: General - Additonal information Additional information: Patient is a 67-year-old female presenting to the emergency department with hyponatremia. Patient notes she has chronic history of hyponatremia she has been following with GI in [facility] for persistent electrolyte abnormalities and history of chronic pancreatitis. She notes she was admitted recently few weeks ago for hyponatremia she notes she had follow-up labs done a week ago at her GI office and was contacted today by her PCP for hyponatremia to 124 and told to come to the emergency department. She notes she is asymptomatic though she notes she has occasional diarrhea but her bowel movements have been more soft recently she notes this is secondary to history of constipation. Patient denies any nausea vomiting no fevers no abdominal pain. She denies any tremors or weakness or history of seizures. PD PAST MEDICAL HISTORY - Past Medical History Past Medical History: Yes Cardiovascular: Hypertension Respiratory: None Neuro: None Endocrine/Autoimmune: None GI: GERD, Pancreatitis COAT JOINER: None : None HEENT: None Psych: Depression, Anxiety, Panic attacks Musculoskeletal: Other Derm: None - Past Surgical History Past Surgical History: Yes General: Cholecystectomy Ortho: Other /COAT JOINER: section, Hysterectomy HEENT: Tonsil/Adenoidectomy Derm: Other - Present Medications Home Medications: Ambulatory Orders Medication Instructions Recorded Confirmed Dicyclomine HCl 20 mg PO QID PRN 07/10/23 07/10/23 LORazepam [Lorazepam] 1 mg PO BID PRN 07/10/23 07/10/23 Omeprazole 20 mg PO DAILY 07/10/23 07/10/23 Venlafaxine Besylate [Venlafaxine 225 mg PO DAILY 07/10/23 07/10/23 Besylate ER] Zolpidem Tartrate [Ambien] 10 mg PO HS 07/10/23 07/10/23 hydrOXYzine HCL [Hydroxyzine HCl] 25 mg PO HS 07/10/23 07/10/23 lisinopriL [Lisinopril] 10 mg PO DAILY 07/10/23 07/10/23 - Allergies Allergies/Adverse Reactions: Allergies Allergy/AdvReac Type Severity Reaction Status Date / Time codeine Allergy Hives Verified 09/07/23 18:15 oxycodone Allergy Hives Verified 09/07/23 18:15 Sulfa (Sulfonamide Allergy Hives Verified 09/07/23 18:15 Antibiotics) venom-honey bee Allergy Hives Verified 09/07/23 18:15 [bee venom (honey bee)] bupropion [From Wellbutrin] AdvReac Unknown Verified 09/07/23 18:15 - Social History Does the pt smoke?: No Smoking Status: Never smoker Does the pt drink ETOH?: Yes Does the pt have substance abuse?: No - Immunizations Immunizations are current?: Yes - POLST Patient has POLST: No PD ED PE NORMAL - Vitals Vital signs reviewed: Yes - General General: Alert and oriented X 3 - HEENT HEENT: Atraumatic, PERRL, EOMI - Neck Neck: Supple, no meningeal sign - Cardiac Cardiac: RRR, No murmur, No gallop, No rub - Respiratory Respiratory: No respiratory distress, Clear bilaterally - Abdomen Abdomen: Normal bowel sounds, Soft, Non tender, Non distended - Back Back: No CVA TTP - Derm Derm: Normal color - Neuro Neuro: Alert and oriented X 3, No motor deficit, No sensory deficit Results - Vitals Vitals: Vital Signs - 24 hr 09/07/23 09/07/23 18:09 18:22 Temperature 36.9 C Heart Rate 74 Respiratory 18 16 Rate Blood Pressure 178/95 H O2 Saturation 98 Oxygen O2 Source Room air - Labs Labs: Laboratory Tests 09/07/23 09/07/23 18:27 18:27 WBC 8.8 RBC 3.66 L Hgb 10.7 L Hct 33.0 L MCV 90.2 MCH 29.2 MCHC 32.4 RDW 14.7 Plt Count 240 MPV 9.3 Neut # (Auto) 5.7 Lymph # (Auto) 2.3 [place] # (Auto) 0.7 Eos # (Auto) 0.1 Baso # (Auto) 0.1 Absolute Nucleated RBC 0.00 Nucleated RBC % 0.0 Sodium 129 L Potassium 3.8 Chloride 95 L Carbon Dioxide 31 Anion Gap 3.0 L BUN 19 Creatinine 0.7 Estimated GFR (MDRD) 83 L Glucose 117 H Calcium 10.1 Total Bilirubin 0.3 AST 57 H ALT 116 H Alkaline Phosphatase 114 Total Protein 6.9 Albumin 4.6 Globulin 2.3 Albumin/Globulin Ratio 2.0 Lipase 34 PD Medical Decision Making - ED course Complexity details: reviewed old records, reviewed results ED course: Patient 67-year-old female here emergency department for hyponatremia informed by her PCP from labs obtained last week patient notes she is asymptomatic no tremors no weakness no history of seizures she notes history of hyponatremia follows with GI unsure why she is having persistent hyponatremia and no history of diuretic use she does have history of hypertension and takes lisinopril but no other medications. Patient admitted 2 weeks ago for hyponatremia and had labs for recheck 1 week ago. Patient vital stable on arrival. Physical exam shows normal cardiac lung sounds strength intact in upper and lower extremities labs repeated here in the emergency department show hyponatremia to 129. This appears closer to patient's baseline around 130. No other electrolyte abnormalities. CBC is unremarkable. Discussed with patient reassuring findings CMP also notably did have elevation in LFTs this is new for patient on review of her labs however she notes this is something she was aware of when she is not admitted to in [facility] a few weeks ago. She denies any abdominal pain no nausea or vomiting after eating. She will continue follow-up with GI for these labs. Given patient is asymptomatic she feels safe to go home instructed patient symptoms could be secondary to drinking too much water she has been trying to increase her water for her constipation. Instructed patient to monitor for any symptoms of numbness tingling tremors return to emergency department with any new or worsening symptoms. Departure - Departure Disposition: 01 Home, Self Care Clinical Impression: Hyponatremia, Elevated liver enzymes Condition: Good Comments: You were seen here in the emergency department for your concern for low sodium levels as instructed by your PCP to come to the emergency department however given you are asymptomatic this was reassuring additionally your labs show returned to baseline for your sodium levels. You are still slightly hyponatrem ic I recommend you follow-up with your GI and primary care doctor in the outpatient setting. I suspect you may be drinking lots of fluids you can continue with the MiraLAX at home for your constipation symptoms but otherwise follow-up with GI outpatient setting for monitoring of your sodium levels. Additionally your liver enzymes did appear elevated however you did note that this was something informed to you when you were at [facility]. Continue to monitor for those and if you develop any abdominal pain vomiting, or fevers return to emergency department. Forms: PCP List Discharge Date/Time: 09/07/23 20:00
== END 2023-09-07 20:00 | disposition home or self-care (01) ==
LOC: ED 18:03
DX: E87.1 Hypo-osmolality and hyponatremia (principal); R74.01 Elevation of levels of liver transaminase levels; I10 Essential (primary) hypertension
CPT/HCPCS: 36415; 80053; 83690; 85025; 99283

== ENCOUNTER 2023-09-09 21:43 | Outpatient (CLI) | payer MEDICARE, OTHER | END 2023-09-09 21:44 | disposition critical access hospital (66) | LOC: EMS 21:43 | DX: R25.1 Tremor, unspecified (principal); R61 Generalized hyperhidrosis; R23.2 Flushing; R42 Dizziness and giddiness; R06.4 Hyperventilation | CPT/HCPCS: A0425; A0429 ==

== ENCOUNTER 2023-09-09 22:15 | Emergency (ER) | payer MEDICARE, OTHER ==
[2023-09-10 00:31] LABS: ALBUMIN 4.3 g/dL (3.2-5.5); ALBUMIN/GLOBULIN RATIO 1.9 (1.0-2.2); BILIRUBIN,TOTAL 0.3 mg/dL (0.2-1.0); CREATININE 0.9 mg/dL (0.6-1.3); POTASSIUM 4.2 mmol/L (3.5-4.5); TOTAL PROTEIN 6.6 g/dL (6.4-8.9)
--- NOTE | 2023-09-10 01:35 | ED Physician Documentation ---
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 She states that she has been seeing a GI specialist and that her sodium has been chronically low. She states that she also has chronic intermittent diarrhea, which can sometimes be watery and sometimes can just be lots of small chunks. The patient states that she has been admitted to the hospital multiple times when her sodium "gets down to 130". She states she was just admitted last about 2 weeks ago and that she went straight from her GIs office to the emergency department for sodium of 130. She also been having diarrhea at that time and was given several liters of IV fluid. She states she was in the hospital for 3 days. The patient is not aware of any other diagnoses besides hyponatremia that might have kept her in the hospital. The patient states that the "hyponatremia" episodes come on quickly and seemingly out of the blue. She states that she had 1 such e pisode this evening which caused her to come in. She states that typically, her whole body feels tight, like all her muscles are deshaun. She states that she feels as though she cannot breathe and her heart rate speeds up. She gets sweaty and shaky. The patient states that it has been happening more more frequently recently. She is seeing her primary PA as recently as today, but states that the only diagnosis she has been given is hyponatremia and so she believes these episodes are from that. She feels frustrated because she drinks 64 ounces electrolyte drinks every day and does not understand why she cannot keep on top of her electrolytes. She is concerned because she is urinating a lot and wonders if she may have DKA because she looked up the symptoms. She is not known to have a history of diabetes. The patient states that her lisinopril was recently doubled from 10 mg to 20 mg. Her blood pressures have been running sometimes as high as 200s over 100 home and she is concerned about this. The patient denies chest pain. The patient has a history of anxiety and depression and is on venlafaxine. She thinks she is nearly maxed out on her dosing for this but is not sure of the exact dose. She also takes the lorazepam every evening to "calm me down", and has done this for many years. She has not tried taking any extra lorazepam when she has one of her episodes. The patient was just here 2 days ago for similar symptoms and at that time had labs done showing mild hyponatremia at 130 and a glucose of 117. Her is project manager is Dr. Vernon at [facility], and her primary PA is Melodie Lewis. The patient is not currently having symptoms. No other complaints at this time. PD PAST MEDICAL HISTORY - Past Medical History Cardiovascular: Hypertension Respiratory: None Neuro: None Endocrine/Autoimmune: None GI: GERD, Pancreatitis SUBSTATION ELECTRICIAN: None : None HEENT: None Psych: Depression, Anxiety, Panic attacks Musculoskeletal: Other Derm: None - Past Surgical History Past Surgical History: Yes General: Cholecystectomy Ortho: Other /SUBSTATION ELECTRICIAN: section, Hysterectomy HEENT: Tonsil/Adenoidectomy Derm: Other - Present Medications Home Medications: Ambulatory Orders Medication Instructions Recorded Confirmed Dicyclomine HCl 20 mg PO QID PRN 07/10/23 07/10/23 LORazepam [Lorazepam] 1 mg PO BID PRN 07/10/23 07/10/23 Omeprazole 20 mg PO DAILY 07/10/23 07/10/23 Venlafaxine Besylate [Venlafaxine 225 mg PO DAILY 07/10/23 07/10/23 Besylate ER] Zolpidem Tartrate [Ambien] 10 mg PO HS 07/10/23 07/10/23 hydrOXYzine HCL [Hydroxyzine HCl] 25 mg PO HS 07/10/23 07/10/23 lisinopriL [Lisinopril] 10 mg PO DAILY 07/10/23 07/10/23 - Allergies Allergies/Adverse Reactions: Allergies Allergy/AdvReac Type Severity Reaction Status Date / Time codeine Allergy Hives Verified 09/09/23 22:23 oxycodone Allergy Hives Verified 09/09/23 22:23 Sulfa (Sulfonamide Allergy Hives Verified 09/09/23 22:23 Antibiotics) venom-honey bee Allergy Hives Verified 09/09/23 22:23 [bee venom (honey bee)] bupropion [From Wellbutrin] AdvReac Unknown Verified 09/09/23 22:23 - Social History Does the pt smoke?: No Smoking Status: Never smoker Does the pt drink ETOH?: Yes Does the pt have substance abuse?: No - Immunizations Immunizations are current?: Yes - POLST Patient has POLST: No PD ED PE NORMAL - Vitals Vital signs reviewed: Yes - General General: Alert and oriented X 3, No acute distress, Well developed/nourished, Other (The patient appears mildly anxious and is sometimes tearful, but otherwise no apparent distress.) - HEENT HEENT: Atraumatic, EOMI, Moist mucous membranes - Neck Neck: Supple, no meningeal sign - Cardiac Cardiac: RRR, No murmur - Respiratory Respiratory: No respiratory distress, Clear bilaterally - Abdomen Abdomen: Soft, Non tender, Non distended - Derm Derm: Normal color, Warm and dry, No rash - Extremities Extremities: No deformity, No edema, No calf tenderness / cord - Neuro Neuro: Other (Alert, grossly intact) - Psych Psych: Other (Anxious, intermittently tearful.) Results - Vitals Vitals: Vital Signs - 24 hr 09/09/23 09/09/23 09/10/23 22:20 23:00 00:30 Temperature 36.3 C L Heart Rate 82 73 74 Respiratory 16 19 19 Rate Blood Pressure 179/96 H 158/95 H 167/92 H O2 Saturation 100 98 99 09/10/23 01:30 Temperature Heart Rate 96 Respiratory 23 Rate Blood Pressure 176/97 H O2 Saturation 100 Oxygen O2 Source Room air - Labs Labs: Laboratory Tests 09/09/23 23:59 Sodium 132 L Potassium 4.2 Chloride 98 L Carbon Dioxide 27 Anion Gap 7.0 BUN 20 Creatinine 0.9 Estimated GFR (MDRD) 62 L Glucose 99 Calcium 10.0 Total Bilirubin 0.3 AST 46 H ALT 98 H Alkaline Phosphatase 96 Total Protein 6.6 Albumin 4.3 Globulin 2.3 Albumin/Globulin Ratio 1.9 Lipase 33 PD Medical Decision Making - ED course Complexity details: reviewed old records, reviewed results, re-evaluated patient, considered differential, d/w patient ED course: I had a very long discussion with this patient I also reviewed her old records. The patient has been here multiple times in the last several months for these complaints and has never had a sodium lower than 129. I have informed the patient that there is no way she would have been admitted for a sodium of 130 and that there must been something else, but the patient is unable to recall. I discussed with the patient that her symptoms simply do not sound like hyponatremia anyway and that they do sound like a panic attack possibly. Patient states that nobody is ever raised this possibility with her that she can recall. The patient already has Ativan which she uses every night and is most likely habituated to this is my suspicion. Venlafaxine does not seem to be working for her. The patient states that she feels constantly stressed out and afraid ever since her of 42 years about 2 years ago. The health challenges she has had since last November have only amplified this. The patient has some supports in her community but states she still lives alone and feels vulnerable a lot of the time. She states that because she is always worried about her hyponatremia and the symptoms she has been having, she does not get out in her garden like she would like to or do the other things that make her happy. I have repeated the patient's labs today and the patient continues to have a very mildly decreased sodium at 132. I have reassured her that she has neither diabetes nor DKA either clinically or on labs. I have encouraged her to talk to Ms. Lewis about other options for treating her anxiety and depression. For now, I have advised her that she may take one of her lorazepam tablets if she begins to have the symptoms she is described. The patient is stable for discharge home. We have discussed the usual indications for return and the need for follow-up. Departure - Departure Disposition: 01 Home, Self Care Clinical Impression: Panic disorder, Anxiety Depression Qualifiers: Depression Type: unspecified Qualified Code(s): F32.A - Depression, unspecified Hypertension Qualifiers: Hypertension type: unspecified Qualified Code(s): I10 - Essential (primary) hypertension Condition: Stable Instructions: ED Depression, ED Panic Attack Comments: I have looked back through your records from your last several visits to our emergency department and your sodium has never been less than 129 in any of those visits. Today, it is 132. Additionally, your potassium is normal and your blood sugar is not indicative of diabetes. Your blood pressure has been running high, but you do not exhibit any signs of hypertensive emergency, which would indicate acute stress to your vital organs from the elevated blood pressure. It is not clear how much of your elevated blood pressure is due to an actual problem with high blood pressure or due to anxiety. Your symptoms honestly sound most like panic attacks and these can sometimes come on seemingly out of the blue with no trigger. It sounds like the venlafaxine that you are taking has not been managing these so far and it is very important that you speak with your primary provider about recommended changes to your mental health medication regimen. It may be helpful to try taking an extra dose of your lorazepam when you have an attack, as you are most likely fairly habituated to your current dose of lorazepam and it is unlikely to do much good and stopping the acute panic attacks. It is very important that you work closely with your primary on this, however. Please call for the next available appointment to follow-up. There is no evidence of an emergent condition today. Forms: PCP List Discharge Date/Time: 09/10/23 01:54
[2023-09-10 01:58] VITALS: BP 176/97; O2SAT 100
== END 2023-09-10 01:54 | disposition home or self-care (01) ==
LOC: EDUNIT# → ED 22:15
DX: I10 Essential (primary) hypertension (principal); F41.9 Anxiety disorder, unspecified; F32.A Depression, unspecified; F41.0 Panic disorder [episodic paroxysmal anxiety]; Z79.899 Other long term (current) drug therapy
CPT/HCPCS: 36415; 80053; 83690; 99283

== ENCOUNTER 2023-10-26 15:19 | Outpatient (CLI) | payer MEDICARE, OTHER ==
[2023-10-26 15:52] LABS: ALBUMIN 4.3 g/dL (3.2-5.5); ALBUMIN/GLOBULIN RATIO 1.9 (1.0-2.2); BILIRUBIN,TOTAL 0.3 mg/dL (0.2-1.0); CALCIUM 9.6 mg/dL (8.5-10.3); POTASSIUM 4.5 mmol/L (3.5-4.5); TOTAL PROTEIN 6.6 g/dL (6.4-8.9)
[2023-10-26 15:54] LABS: BASOPHILS % (AUTO) 0.6 %; EOSINOPHILS # (AUTO) 0.1 10^3/uL (0.0-0.7); EOSINOPHILS % (AUTO) 1.1 %; HCT - HEMATOCRIT 35.4 % (37.0-47.0); HGB - HEMOGLOBIN 11.2 g/dL (12.0-16.0); MEAN CORPUSCULAR HEMOGLOBIN 29.2 pg (27.0-31.0); MEAN CORPUSCULAR HGB CONC 31.6 g/dL (32.0-36.0); MEAN CORPUSCULAR VOLUME 92.4 fL (81.0-99.0); MONOCYTES # (AUTO) 0.7 10^3/uL (0.0-1.0); MONOCYTES % (AUTO) 11.1 %; NEUTROPHILS # (AUTO) 3.4 10^3/uL (1.5-6.6); PLT - PLATELET COUNT 253 10^3/uL (130-450); RED BLOOD COUNT 3.83 10^6/uL (4.20-5.40); WHITE BLOOD COUNT 6.2 x10^3/uL (4.8-10.8)
== END 2023-10-26 15:20 | disposition home or self-care (01) ==
LOC: LAB 15:19
PROVIDERS: ATTEND Nurse Practitioner Family
DX: E87.1 Hypo-osmolality and hyponatremia (principal); R79.89 Other specified abnormal findings of blood chemistry; D64.9 Anemia, unspecified; R53.83 Other fatigue; K86.1 Other chronic pancreatitis
CPT/HCPCS: 36415; 80053; 81001; 82150; 83690; 85025; 87086

== ENCOUNTER 2023-10-27 08:00 | Outpatient (CLI) | payer MEDICARE, OTHER ==
[2023-10-27 17:55] LABS: BILIRUBIN,URINE NEGATIVE (NEGATIVE); GLUCOSE, URINE (UA) NEGATIVE (NEGATIVE); KETONES,URINE (UA) NEGATIVE (NEGATIVE); LEUKOCYTE ESTERASE, URINE NEGATIVE (NEGATIVE); NITRITE,URINE NEGATIVE (NEGATIVE); OCCULT BLOOD,URINE NEGATIVE (NEGATIVE); PROTEIN,URINE NEGATIVE (NEGATIVE); UROBILINOGEN,URINE 0.2 (NORMAL) E.U./dL (NORMAL)
[2023-10-27 18:22] LABS: BACTERIA,URINE None Seen /HPF (None Seen); CLARITY,URINE CLEAR (CLEAR); RBC,URINE None Seen /HPF (0-5); SQUAMOUS EPITHELIAL CELL,UR RARE Squamous (<= Few); WBC,URINE 0-3 /HPF (0-5)
== END 2023-10-27 23:59 | disposition home or self-care (01) ==
LOC: LAB.S 08:00
PROVIDERS: ATTEND Nurse Practitioner Family
DX: D64.9 Anemia, unspecified (principal); R79.89 Other specified abnormal findings of blood chemistry; R53.83 Other fatigue
CPT/HCPCS: 81001; 87086